=== PATIENT | female | born 1965 | race Caucasian/White ===

== ENCOUNTER 2017-03-03 12:01 | Emergency (ER) | payer OTHER, SELFPAY | END 2017-03-03 14:19 | disposition home or self-care (01) | PROVIDERS: Emergency Provider Emergency Medicine; Visit Provider Emergency Medicine | DX: M54.42 Lumbago with sciatica, left side (principal); M47.9 Spondylosis, unspecified; F17.210 Nicotine dependence, cigarettes, uncomplicated | CPT/HCPCS: 72110; 99282 ==

== ENCOUNTER → 2017-04-07 10:54 | Outpatient (REF) | payer BC, SELFPAY ==
[2017-04-07 17:16] LABS: Amphetamine/Metha Screen,Urine Negative ng/mL (<1000); Barbiturates Screen,Urine Negative ng/mL (<200); Benzodiazepines Screen,Urine Negative ng/mL (200); Cannabinoid Screen,Urine Positive ng/mL (<50); Cocaine Screen,Urine Negative ng/g (<300); Methadone Screen,Urine Negative ng/mL (<300); Opiate Screen,Urine Negative ng/mL (<300); Phencyclidine Screen,Urine Negative ng/mL (<25)
== END ==
LOC: LAB 10:54
PROVIDERS: Visit Provider Nurse Practitioner Family
DX: R63.4 Abnormal weight loss (principal)
CPT/HCPCS: 80305

== ENCOUNTER → 2017-04-09 09:07 | Outpatient (CLI) | payer BC, SELFPAY ==
[2017-04-09 09:28] LABS: Basophils # 0.1 K/mm3 (0-0.2); Basophils % 0.5 % (0.1-2.0); Eosinophils # 0.2 K/mm3 (0.0-0.4); Eosinophils % 1.1 % (0.1-12.0); Hematocrit 45.7 % (37.0-47.0); Hemoglobin 14.9 g/dL (12.2-16.2); Lymphocytes # 5.1 K/mm3 (0.7-4.5); Lymphocytes % 33.5 K/mm3 (10-50); Mean Corpuscular HGB Conc 32.6 g/dL (31.8-35.4); Mean Corpuscular Hemoglobin 31.8 pg (27.0-31.2); Mean Corpuscular Volume 97.3 fl (81-99); Mean Platelet Volume 7.7 fl (7.4-10.4); Monocytes # 0.5 K/mm3 (0.1-1.0); Monocytes % 3.4 % (1.7-9.3); Neutrophils # 9.4 K/mm3 (1.8-7.8); Neutrophils % 61.5 % (37.0-80.0); Platelet Count 364 K/mm3 (142-424); Red Cell Distribution Width 13.2 % (11.5-17.5); White Blood Count 15.2 K/mm3 (4.8-10.8)
[2017-04-09 09:37] LABS: MANUAL DIFFERENTIAL MANUAL DIFFERENTIAL (MANUAL DIFF)
[2017-04-09 10:23] LABS: Alanine Aminotransferase 26 U/L (12-78); Albumin Level 3.9 gm/dL (3.4-5.0); Albumin/Globulin Ratio 1.3 (1.1-1.8); Alkaline Phosphatase 90 U/L (46-116); Anion Gap 15.6 mEq/L (5-15); Aspartate Amino Transferase 12 U/L (15-37); Bilirubin,Total 0.5 mg/dL (0.2-1.0); Blood Urea Nitrogen 8 mg/dL (7-18); Calcium 8.9 mg/dL (8.5-10.1); Carbon Dioxide 26 mmol/L (21.0-32.0); Chloride 96 mmol/L (98-107); Chol/HDL Ratio 5.1 (1-3.5); Cholesterol 264 mg/dL (140-200); Estimated Glomerular Filt Rate 76 ml/min (>60); GFR (African American) 92 ML/MIN (>60); Globulin 3.1 gm/dl (1.3-3.2); HDL Cholesterol 52 mg/dL (29-89); LDL Cholesterol 143 mg/dL (0-130); Potassium 3.6 mmoL/L (3.5-5.1); Sodium 134 mmol/L (136-145); T4 (Thyroxine) 8.9 ug/dl (4.7-13.3); Thyroid Stimulating Hormone 1.95 uIU/ml (0.358-3.740); Triglycerides 345 mg/dL (30-200); VLDL Cholesterol 69 mg/dL (0-40)
[2017-04-09 10:32] LABS: Glucose 573 mg/dL (74-106)
[2017-04-09 12:32] LABS: Eosinophils % 1 % (0-3); Lymphocytes % 38 % (10-50); Monocytes % 4 % (2-9); Neutrophils % 57 % (42-76); Platelet Estimate Normal; Total Cells Counted 100
[2017-04-09 12:40] LABS: RBC Morphology Normal
[2017-04-09 18:49] LABS: Hemoglobin A1C 10.1 % (0.0-7.0)
[2017-04-10 18:28] LABS: Vitamin D 25 Hydroxy 14.4 ng/mL (30.0-100.0)
[2017-04-11 09:10] LABS: Peripheral Smear Review Scanned Result
== END ==
PROVIDERS: PCP Nurse Practitioner Family; Visit Provider Nurse Practitioner Family
DX: E11.9 Type 2 diabetes mellitus without complications (principal); R63.4 Abnormal weight loss
CPT/HCPCS: 36415; 80053; 80061; 82652; 83036; 84436; 84443; 85007; 85025

== ENCOUNTER → 2017-04-09 14:20 | Outpatient (CLI) | payer BC, SELFPAY ==
--- NOTE | 2017-04-09 14:24 | XR_ITS ---
EXAM: XR lumbar spine 2-3V HISTORY: Low back pain ITS.REASON: back pain ORDERING PHYSICIAN: Adeel Boyd PATIENT AGE: 52 years COMPARISON: 03/03/2017 FINDINGS: There is normal alignment. There is minimal lower thoracic lumbar scoliosis convex right. No fracture or dislocation. No lytic or blastic change. There is minimal anterolisthesis of L5 on S1 of 4 mm. The anterolisthesis did not appear to be present on the previous exam. Bilateral pars defect is present at L5. IMPRESSION: 1. Mild grade 1 spondylitic spondylolisthesis of L5 on S1. 2. Otherwise negative lumbar spine
--- NOTE | 2017-04-09 14:24 | XR_ITS ---
EXAM: XR thoracic spine 3V HISTORY: Thoracic pain ITS.REASON: back pain COMPARISON: None FINDINGS: Normal alignment. No fracture or dislocation. No lytic or blastic change. No significant degenerative change. The disc spaces are preserved. There is mild lower thoracic scoliosis convex right. There is mild degenerative disc disease in the mid to upper thoracic spine with minimal anterior osteophytes. There is slight decrease in height anteriorly of T11 and T12 appears chronic similar to an old abdomen CT on 04/01/2013. IMPRESSION: 1. No acute finding. 2. Mild thoracic spondylosis in the upper and lower thoracic spine
--- NOTE | 2017-04-09 14:24 | XR_ITS ---
XR hip LT 2-3V w/pelvis HISTORY: Left hip pain ITS.REASON: hip pain ORDERING PHYSICIAN: Adeel Boyd PATIENT AGE: 52 years COMPARISON: None FINDINGS: No fracture or dislocation is evident. No significant degenerative change. No lytic or blastic change. Unremarkable soft tissues IMPRESSION: Negative left hip
--- NOTE | 2017-04-09 14:24 | XR_ITS ---
XR chest 2V HISTORY: ITS.REASON: loss of 20 lb in one month ORDERING PHYSICIAN: Adeel Boyd PATIENT AGE: 52 years COMPARISON: None available FINDINGS: The cardiomediastinal silhouette and pulmonary vascularity are within normal limits. The lungs are clear without infiltrates, suspicious nodules, or pleural effusions. There is a 15 mm nodular opacity overlying the right upper quadrant. This may be related to a nipple shadow. Surgical clips are present in the right upper quadrant. No acute bony abnormalities. IMPRESSION: 1. Negative chest with no acute finding of the chest. 2. Right upper quadrant opacity possibly related to overlying nipple shadow.
== END ==
PROVIDERS: PCP Nurse Practitioner Family; Visit Provider Nurse Practitioner Family
DX: R63.4 Abnormal weight loss (principal); M25.559 Pain in unspecified hip; M54.9 Dorsalgia, unspecified
CPT/HCPCS: 71046; 72072; 72100; 73502

== ENCOUNTER 2017-04-14 11:09 | Observation (INO) | payer BC, SELFPAY ==
[2017-04-14] VITALS (10 sets, daily range): BP systolic 109–164; BP diastolic 62–98; PULSE 97–117; RESP 16–20; TEMP 36.6–37; O2SAT 98–100; BMI 17.2
--- NOTE | 2017-04-14 11:25 | CT_ITS ---
CT head/brain wo con HISTORY: ITS.REASON: dizziness ORDERING PHYSICIAN: Lilly Hudson MD PATIENT AGE: 52 years COMPARISON: None TECHNIQUE: Axial images obtained without contrast. Brain and bone windows reviewed. FINDINGS: No midline shift, mass effect, intracranial hemorrhage, hydrocephalus, or extra-axial fluid collection is evident. The calvarium has an unremarkable appearance. No mastoid effusion. No sinus air-fluid levels.. IMPRESSION: No acute finding.
--- NOTE | 2017-04-14 11:26 | HMH.EDDIZZ ---
ED Disposition Clinical Impression: Dizziness, Uncontrolled diabetes mellitus, Tobacco use, Metabolic acidosis, Tachycardia Disposition: Home, Self-Care Condition on Discharge: Fair Referrals: Adeel Boyd APRN [Primary Care Provider] - - Critical Care Critical Care Time: No Attestation: On , the high probability of a clinically significant, sudden or life threatening deterioration of the following system(s) required my full and direct attention, intervention and personal management. The time I documented below is in addition to time spent performing reported procedures but includes the following listed in this critical care notation. Medical Decision Making - Medical Records Medical records reviewed: Yes: I reviewed the patient's medical records. Vital Signs: 04/14/17 11:16 04/14/17 11:17 04/14/17 11:34 Temperature 98 F Temperature Source Oral Pulse Rate [Orthostatic Lying Right Ulnar] 109 H Pulse Rate [Orthostatic Sitting Right Ulnar] 115 H Pulse Rate [Orthostatic Standing Right Ulnar] Pulse Rate [Right Brachial] 106 H Respiratory Rate 18 Blood Pressure [Orthostatic Lying Right Arm] 144/93 Blood Pressure [Orthostatic Sitting Right Arm] 164/98 Blood Pressure [Orthostatic Standing Right Arm] Blood Pressure [Right Arm] 144/93 Blood Pressure Mean [Right Arm] 110 Blood Pressure Source [Right Arm] Automatic Cuff Blood Pressure Position [Right Arm] Supine 02 Sat by Pulse Oximetry 100 Oxygen Delivery Method Room Air 04/14/17 11:37 Temperature Temperature Source Pulse Rate [Orthostatic Lying Right Ulnar] Pulse Rate [Orthostatic Sitting Right Ulnar] Pulse Rate [Orthostatic Standing Right Ulnar] 117 H Pulse Rate [Right Brachial] Respiratory Rate Blood Pressure [Orthostatic Lying Right Arm] Blood Pressure [Orthostatic Sitting Right Arm] Blood Pressure [Orthostatic Standing Right Arm] 134/96 Blood Pressure [Right Arm] Blood Pressure Mean [Right Arm] Blood Pressure Source [Right Arm] Blood Pressure Position [Right Arm] 02 Sat by Pulse Oximetry Oxygen Delivery Method - Lab Data Lab results reviewed: Yes: I reviewed the patient's lab results. Lab Results 04/14/17 11:20: Stool Occult Blood Negative 04/14/17 11:26: Specimen Source R brachial, O2 % Room air, ABG pH 7.29 L, ABG pCO2 21.1 L, ABG pO2 99.7, ABG HCO3 9.8 L, ABG Total CO2 10.5 L, ABG O2 Saturation 98, ABG Base Excess -16.9 L, Michael Test N/a, Carboxyhemoglobin 2.7 04/14/17 11:45: TSH 1.70, Free T4 1.18 04/14/17 11:48: WBC 15.9 H, RBC 5.17, Hgb 16.2, Hct 49.8 H, MCV 96.3, MCH 31.3 H, MCHC 32.5, RDW 13.4, Plt Count 385, MPV 7.4, Neut % (Auto) 64.3, Lymph % (Auto) 30.2, [place] % (Auto) 3.8, Eos % (Auto) 1.2, Baso % (Auto) 0.4, Neut # (Auto) 10.2 H, Lymph # (Auto) 4.8 H, [place] # (Auto) 0.6, Eos # (Auto) 0.2, Baso # (Auto) 0.1, Total Counted 100, Neutrophils % (Manual) 64, Lymphocytes % (Manual) 29, Monocytes % (Manual) 6, Eosinophils % (Manual) 1, Platelet Estimate Slight increase, RBC Morphology Normal 04/14/17 11:48: D-Dimer 167 04/14/17 11:48: Sodium 136, Potassium 3.5, Chloride 101, Carbon Dioxide 16 L, Anion Gap 22.5 H, BUN 10, Creatinine 0.92, Estimated Creat Clear 57, Estimated GFR 64, Est GFR ( Amer) 78, Glucose 319 H, Calcium 9.1, Total Bilirubin 0.7, AST 8 L, ALT 25, Alkaline Phosphatase 96, Total Creatine Kinase 20 L, CK-MB (CK-2) < 0.5, CK-MB (CK-2) Rel Index 2.5, Troponin I < 0.02, Total Protein 7.4, Albumin 3.8, Globulin 3.6 H, Albumin/Globulin Ratio 1.1 04/14/17 11:48: Magnesium 1.7 04/14/17 12:45: Lactic Acid 1.1 Result diagrams: 04/14/17 11:48 04/14/17 11:48 Orders (Tests/Meds): ED MEDICATIONS Discontinued Medications Generic Name Dose Route Start Last Admin Trade Name Freq PRN Reason Stop Dose Admin Sodium Chloride 1,000 mls @ 999 mls/hr 04/14/17 11:45 04/14/17 11:55 Sod Chloride 0.9% 1000ml Bag IV 04/14/17 12:45 999 mls/hr .Q1H1M ESTEBAN Administration Meclizine H
--- NOTE | 2017-04-14 11:29 | ED_ITS ---
ED Disposition Clinical Impression: Dizziness, Uncontrolled diabetes mellitus, Tobacco use, Metabolic acidosis, Tachycardia Disposition: Home, Self-Care Condition on Discharge: Fair Referrals: Adeel Boyd APRN [Primary Care Provider] - - Critical Care Critical Care Time: No Attestation: On , the high probability of a clinically significant, sudden or life threatening deterioration of the following system(s) required my full and direct attention, intervention and personal management. The time I documented below is in addition to time spent performing reported procedures but includes the following listed in this critical care notation. Medical Decision Making - Medical Records Medical records reviewed: Yes: I reviewed the patient's medical records. Vital Signs: 04/14/17 11:16 04/14/17 11:17 04/14/17 11:34 Temperature 98 F Temperature Source Oral Pulse Rate [Orthostatic Lying Right Ulnar] 109 H Pulse Rate [Orthostatic Sitting Right Ulnar] 115 H Pulse Rate [Orthostatic Standing Right Ulnar] Pulse Rate [Right Brachial] 106 H Respiratory Rate 18 Blood Pressure [Orthostatic Lying Right Arm] 144/93 Blood Pressure [Orthostatic Sitting Right Arm] 164/98 Blood Pressure [Orthostatic Standing Right Arm] Blood Pressure [Right Arm] 144/93 Blood Pressure Mean [Right Arm] 110 Blood Pressure Source [Right Arm] Automatic Cuff Blood Pressure Position [Right Arm] Supine 02 Sat by Pulse Oximetry 100 Oxygen Delivery Method Room Air 04/14/17 11:37 Temperature Temperature Source Pulse Rate [Orthostatic Lying Right Ulnar] Pulse Rate [Orthostatic Sitting Right Ulnar] Pulse Rate [Orthostatic Standing Right Ulnar] 117 H Pulse Rate [Right Brachial] Respiratory Rate Blood Pressure [Orthostatic Lying Right Arm] Blood Pressure [Orthostatic Sitting Right Arm] Blood Pressure [Orthostatic Standing Right Arm] 134/96 Blood Pressure [Right Arm] Blood Pressure Mean [Right Arm] Blood Pressure Source [Right Arm] Blood Pressure Position [Right Arm] 02 Sat by Pulse Oximetry Oxygen Delivery Method - Lab Data Lab results reviewed: Yes: I reviewed the patient's lab results. Lab Results 04/14/17 11:20: Stool Occult Blood Negative 04/14/17 11:26: Specimen Source R brachial, O2 % Room air, ABG pH 7.29 L, ABG pCO2 21.1 L, ABG pO2 99.7, ABG HCO3 9.8 L, ABG Total CO2 10.5 L, ABG O2 Saturation 98, ABG Base Excess -16.9 L, Michael Test N/a, Carboxyhemoglobin 2.7 04/14/17 11:45: TSH 1.70, Free T4 1.18 04/14/17 11:48: WBC 15.9 H, RBC 5.17, Hgb 16.2, Hct 49.8 H, MCV 96.3, MCH 31.3 H , MCHC 32.5, RDW 13.4, Plt Count 385, MPV 7.4, Neut % (Auto) 64.3, Lymph % (Auto ) 30.2, [place] % (Auto) 3.8, Eos % (Auto) 1.2, Baso % (Auto) 0.4, Neut # (Auto) 10.2 H, Lymph # (Auto) 4.8 H, [place] # (Auto) 0.6, Eos # (Auto) 0.2, Baso # (Auto ) 0.1, Total Counted 100, Neutrophils % (Manual) 64, Lymphocytes % (Manual) 29, Monocytes % (Manual) 6, Eosinophils % (Manual) 1, Platelet Estimate Slight increase, RBC Morphology Normal 04/14/17 11:48: D-Dimer 167 04/14/17 11:48: Sodium 136, Potassium 3.5, Chloride 101, Carbon Dioxide 16 L, Anion Gap 22.5 H, BUN 10, Creatinine 0.92, Estimated Creat Clear 57, Estimated GFR 64, Est GFR ( Amer) 78, Glucose 319 H, Calcium 9.1, Total Bilirubin 0.7, AST 8 L, ALT 25, Alkaline Phosphatase 96, Total Crea
--- NOTE | 2017-04-14 11:51 | XR_ITS ---
XR chest 2V HISTORY: ITS.REASON: dizziness , right upper quadrant nodule ORDERING PHYSICIAN: Lilly Hudson MD PATIENT AGE: 52 years COMPARISON: None available FINDINGS: The cardiomediastinal silhouette and pulmonary vascularity are within normal limits. The lungs are clear without infiltrates, suspicious nodules, or pleural effusions. Previously noted right upper lobe opacity once again associated with the right breast consistent with a nipple shadow No acute bony abnormalities. IMPRESSION: No change with no acute finding.
[2017-04-14 11:57] LABS: Basophils # 0.1 K/mm3 (0-0.2); Basophils % 0.4 % (0.1-2.0); Eosinophils # 0.2 K/mm3 (0.0-0.4); Eosinophils % 1.2 % (0.1-12.0); Hematocrit 49.8 % (37.0-47.0); Hemoglobin 16.2 g/dL (12.2-16.2); Lymphocytes # 4.8 K/mm3 (0.7-4.5); Lymphocytes % 30.2 K/mm3 (10-50); Mean Corpuscular HGB Conc 32.5 g/dL (31.8-35.4); Mean Corpuscular Hemoglobin 31.3 pg (27.0-31.2); Mean Corpuscular Volume 96.3 fl (81-99); Mean Platelet Volume 7.4 fl (7.4-10.4); Monocytes # 0.6 K/mm3 (0.1-1.0); Monocytes % 3.8 % (1.7-9.3); Neutrophils # 10.2 K/mm3 (1.8-7.8); Neutrophils % 64.3 % (37.0-80.0); Platelet Count 385 K/mm3 (142-424); Red Blood Count 5.17 M/mm3 (4.20-5.40); Red Cell Distribution Width 13.4 % (11.5-17.5); White Blood Count 15.9 K/mm3 (4.8-10.8)
[2017-04-14 11:57] LABS: Occult Blood,Stool Negative (Negative)
[2017-04-14 12:01] LABS: MANUAL DIFFERENTIAL MANUAL DIFFERENTIAL (MANUAL DIFF); Magnesium 1.7 mg/dL (1.4-2.2)
[2017-04-14 12:19] LABS: ABG Base Excess -16.9 mmol/L (-2.4-2.3); ABG HCO3 9.8 mmhg (22.0-26.0); ABG Oxygen Saturation 98 % (90-100); ABG PCO2 21.1 mmhg (35.0-45.0); ABG PH 7.29 mmol/L (7.35-7.45); ABG PO2 99.7 mmhg (80-100); ABG TCO2 10.5 mmhg (23-27)
[2017-04-14 12:20] LABS: Oxygen ROOM AIR %; Source R BRACHIAL
[2017-04-14 12:21] LABS: Carboxyhemoglobin 2.7 (0.0-5.0)
[2017-04-14 12:26] LABS: D-Dimer 167 (0-400)
[2017-04-14 12:35] LABS: CKMB Relative Index 2.5 U/L (0-4.0); Creatine Kinase 20 U/L (26-192); Creatine Kinase MB < 0.5 mg/ml (0.0-3.6)
[2017-04-14 12:36] LABS: Alanine Aminotransferase 25 U/L (12-78); Anion Gap 22.5 mEq/L (5-15); Aspartate Amino Transferase 8 U/L (15-37); Bilirubin,Total 0.7 mg/dL (0.2-1.0); Blood Urea Nitrogen 10 mg/dL (7-18); Calcium 9.1 mg/dL (8.5-10.1); Carbon Dioxide 16 mmol/L (21.0-32.0); Chloride 101 mmol/L (98-107); Creatinine Clearance Estimated 57 mL/min (0-300); Creatinine,Serum 0.92 mg/dL (0.55-1.02); Estimated Glomerular Filt Rate 64 ml/min (>60); GFR (African American) 78 ML/MIN (>60); Glucose 319 mg/dL (74-106); Potassium 3.5 mmoL/L (3.5-5.1); Sodium 136 mmol/L (136-145); Total Protein,Serum 7.4 gm/dL (6.4-8.2); Troponin I < 0.02 ng/ml (0.00-0.06)
[2017-04-14 12:37] LABS: Albumin Level 3.8 gm/dL (3.4-5.0); Albumin/Globulin Ratio 1.1 (1.1-1.8); Alkaline Phosphatase 96 U/L (46-116); Globulin 3.6 gm/dl (1.3-3.2)
[2017-04-14 12:38] LABS: Free T4 (Free Thyroxine) 1.18 ng/dl (0.76-1.46)
[2017-04-14 12:51] LABS: Eosinophils % 1 % (0-3); Lymphocytes % 29 % (10-50); Monocytes % 6 % (2-9); Neutrophils % 64 % (42-76); Platelet Estimate Slight Increase; RBC Morphology Normal; Total Cells Counted 100
[2017-04-14 13:11] LABS: Lactic Acid 1.1 mmol/L (0.4-2.0)
[2017-04-14 18:01] LABS: POC Glucose,Bedside 200 mg/dL
--- NOTE | 2017-04-14 18:17 | PC.NURSE ---
PT LAYING IN BED; DINNER TRAY ON BEDSIDE TABLE; PT NOT EATING AND RN ASKS PT IF SHE WOULD LIKE HER TO REMOVE IT OR IF SHE WOULD LIKE TO KEEP IT IN CASE SHE WANTS IT; PT STATES TO LEAVE THE TRAY, SHE'LL PICK AT IT ; NO OTHER NEEDS OR CONCERNS AT THIS TIME; CALL LIGHT WITHIN REACH; BEDSIDE TABLE WITHIN REACH; SAFETY MEASURES IN PLACE
--- NOTE | 2017-04-14 19:10 | PC.NURSE ---
REPORT GIVEN TO Shadi MASCORRO RN
[2017-04-14 21:39] LABS: POC Glucose,Bedside 293 mg/dL
[2017-04-15 04:05] VITALS: BP 107/64; PULSE 91; RESP 18; TEMP 36.7; O2SAT 99
--- NOTE | 2017-04-15 05:34 | PC.NURSE ---
pt remains stable at this time. denies pain, no needs voiced
[2017-04-15 06:55] LABS: POC Glucose,Bedside 199 mg/dL
[2017-04-15 07:04] LABS: POC Glucose,Bedside 190 mg/dL
[2017-04-15 07:10] LABS: Alanine Aminotransferase 20 U/L (12-78); Albumin Level 2.7 gm/dL (3.4-5.0); Alkaline Phosphatase 65 U/L (46-116); Anion Gap 15.8 mEq/L (5-15); Aspartate Amino Transferase 10 U/L (15-37); Bilirubin,Total 0.8 mg/dL (0.2-1.0); Blood Urea Nitrogen 5 mg/dL (7-18); Calcium 8.6 mg/dL (8.5-10.1); Carbon Dioxide 19 mmol/L (21.0-32.0); Chloride 107 mmol/L (98-107); Creatinine Clearance Estimated 95 mL/min (0-300); Creatinine,Serum 0.55 mg/dL (0.55-1.02); Estimated Glomerular Filt Rate 117 ml/min (>60); GFR (African American) 141 ML/MIN (>60); Globulin 2.6 gm/dl (1.3-3.2); Glucose 190 mg/dL (74-106); Sodium 139 mmol/L (136-145); Total Protein,Serum 5.3 gm/dL (6.4-8.2)
[2017-04-15 07:12] LABS: Potassium 2.8 mmoL/L (3.5-5.1)
--- NOTE | 2017-04-15 07:14 | PC.NURSE ---
potassium of 2.8 recieved, Dr. Lopes paged at this time
--- NOTE | 2017-04-15 07:50 | P.CONPHA_ITS ---
[facility] Pharmacy VTE Monitoring - Patient Demographics Admission date: 04/14/17 Report Date: 04/15/17 Time: 07:50 Allergies/Adverse Reactions: Patient Allergies No Known Allergies Allergy (Verified 04/09/17 13:08) Height: 1.7 m Weight: 49.895 kg Patient Problems: Current Active Problems Dizziness (Acute) Uncontrolled diabetes mellitus (Acute) Tobacco use (Acute) Metabolic acidosis (Acute) Tachycardia (Acute) - VTE Risk Labs: VTE Related Lab Results Hgb 16.2 g/dL (12.2-16.2) 04/14/17 11:48 Hct 49.8 % (37.0-47.0) H 04/14/17 11:48 Plt Count 385 K/mm3 (142-424) 04/14/17 11:48 BUN 5 mg/dL (7-18) L D 04/15/17 06:50 Creatinine 0.55 mg/dL (0.55-1.02) D 04/15/17 06:50 Estimated Creat Clear 95 mL/min (0-300) 04/15/17 06:50 Was VTE Risk Assessment Performed: Yes VTE Score: 2 VTE Risk Level: Very Low Risk Clinical Trial Participant: No - Prophylaxis VTE Prophylaxis Ordered?: Yes Types of VTE Prophylaxis: TEDS Knee High
[2017-04-15 08:00] VITALS: BP 119/72; PULSE 94; RESP 17; TEMP 36.8; O2SAT 97
[2017-04-15 09:40] LABS: Acetone, Serum (Rapid) Small (None Detect)
--- NOTE | 2017-04-15 10:57 | PC.NURSE ---
Potassium 20meq running, applied heart monitor for duration on potassium. Pt has no complaints at this time. Instructed on glucatol dose and side effects of hypoglycemia. Pt verbalized understanding. Will continue to monitor
[2017-04-15 11:40] VITALS: BP 125/75; PULSE 94; RESP 17; TEMP 36.9; O2SAT 100
[2017-04-15 12:05] LABS: POC Glucose,Bedside 248 mg/dL
[2017-04-15 12:43] LABS: Alanine Aminotransferase 25 U/L (12-78); Albumin/Globulin Ratio 1.2 (1.1-1.8); Alkaline Phosphatase 70 U/L (46-116); Anion Gap 13.8 mEq/L (5-15); Aspartate Amino Transferase 17 U/L (15-37); Bilirubin,Total 0.6 mg/dL (0.2-1.0); Blood Urea Nitrogen 5 mg/dL (7-18); Calcium 8.4 mg/dL (8.5-10.1); Carbon Dioxide 22 mmol/L (21.0-32.0); Chloride 106 mmol/L (98-107); Creatinine Clearance Estimated 70 mL/min (0-300); Creatinine,Serum 0.75 mg/dL (0.55-1.02); Estimated Glomerular Filt Rate 81 ml/min (>60); GFR (African American) 99 ML/MIN (>60); Globulin 2.6 gm/dl (1.3-3.2); Glucose 247 mg/dL (74-106); Sodium 139 mmol/L (136-145); Total Protein,Serum 5.6 gm/dL (6.4-8.2)
[2017-04-15 12:45] LABS: Potassium 2.8 mmoL/L (3.5-5.1)
--- NOTE | 2017-04-15 12:45 | PC.NURSE ---
Gisel from the lab called at this time to report critical potassium of 2.8, will notify pts nurse.
--- NOTE | 2017-04-15 12:46 | PC.NURSE ---
Georgiana Badillo RN notified at this time of critical potassium of 2.8
--- NOTE | 2017-04-15 13:21 | HMH.HPDC ---
General - General Admission date: 04/14/17 Discharge date: 04/15/17 *Admission Date: 04/14/17 *Chief complaint: dizzy *History of present illness: 52 years old white female smoker was recently diagnosed with diabetes and started on metformin from office. She presented to the ED with a complaint of dizziness and loss of balance of 1 month's duration that is worse over the last 2 days. It is worse when she is getting up she almost lost her balance and fell but there is no trauma. He denies having chest pain palpitations shortness of breath nausea or vomiting. Pt states room feels like it is spinning. [facility] History I have reviewed the patient's past medical history: Yes Medical History: Reports:: Diabetes Mellitus Type 2 Denies:: Cancer, Diabetes Mellitus Type 1, MRSA Laterality Cases: Left: Arthroscopy Knee Other Surgeries: Yes: Tubal Ligation, Other (gall bladder) Amputation: No Fractures: No - *Social History Educational Level: Completed High School Smoking Status: Current every day smoker Tobacco Type: cigarettes # Packs/Day (cigarettes): 2 Alcohol Intake: never Substance Use Type: denies use Occupational Status: unemployed Housing: house Household Members: spouse, children - Psychiatric History Expresses thoughts of harming self/others: None Suicide Plan Description: No Plan *Family Hx:: Adopted Review of Systems - Review of Systems Review of systems:: pertinent systems reviewed and negative unless documented below - Constitutional Reports anorexia, Reports fatigue - Eyes Denies blurry vision, Denies floaters - ENT Reports poor balance, Reports dizziness, Denies lip swelling - *Cardiovascular Denies chest pain at rest - *Respiratory Denies chest congestion - *Gastrointestinal Denies difficulty swallowing - *Genitourinary Denies abnormal vaginal bleeding - *Musculoskeletal Reports body aches - Integumentary/Breasts Denies rash - *Neurologic Reports unsteadiness, Reports dizziness, Reports weakness, Denies abnormal walking - Psychiatric Reports difficulty concentrating, Denies lack of enjoyment - Endocrine Reports cold intolerance - Hematologic/Lymphatic Denies easy bleeding - Allergic/Immunologic Denies GI upset with certain foods Exam Vital signs and Labs for Last 24 Hours: Temp Pulse Resp BP Pulse Ox 98.5 F 94 H 17 125/75 100 04/15/17 11:40 04/15/17 11:40 04/15/17 11:40 04/15/17 11:40 04/15/17 11:40 Laboratory Results - last 24 hr 04/14/17 17:50: POC Glucose 200 04/14/17 23:18: POC Glucose 199 04/15/17 06:50: Sodium 139, Potassium 2.8 L*, Chloride 107, Carbon Dioxide 19 L, Anion Gap 15.8 H, BUN 5 L D, Creatinine 0.55 D, Estimated Creat Clear 95, Estimated GFR 117, Est GFR ( Amer) 141 D, Glucose 190 H D, Calcium 8.6, Total Bilirubin 0.8, AST 10 L, ALT 20, Alkaline Phosphatase 65, Total Protein 5.3 L D, Albumin 2.7 L D, Globulin 2.6, Albumin/Globulin Ratio 1.0 L 04/15/17 06:50: Acetone Level Small 04/15/17 06:56: POC Glucose 190 04/15/17 11:44: POC Glucose 248 04/15/17 12:19: Sodium 139, Potassium 2.8 L*, Chloride 106, Carbon Dioxide 22, Anion Gap 13.8, BUN 5 L, Creatinine 0.75 D, Estimated Creat Clear 70, Estimated GFR 81, Est GFR ( Amer) 99 D, Glucose 247 H D, Calcium 8.4 L, Total Bilirubin 0.6, AST 17 D, ALT 25, Alkaline Phosphatase 70, Total Protein 5.6 L, Albumin 3.0 L D, Globulin 2.6, Albumin/Globulin Ratio 1.2 I & O for Last 24 hours: Intake & Output 04/13/17 04/14/17 04/15/17 04/16/17 11:59 11:59 11:59 11:59 Intake Total 1525 / 1525 Output Total 500 / 500 Balance 1025 / 1025 Weight 110 lb - Constitutional no acute distress - *Routine HEENT Exam Head: Present: normocephalic Eye: Present: PERRL ENT: Present: mucous membranes moist - *Routine Neck Exam Present: supple, full ROM - *Routine Respiratory Exam Present: CTA bilaterally - *Routine Cardiovascular Exam Present: RRR - *Routine Abdomi
--- NOTE | 2017-04-15 13:25 | P.SWB_ITS ---
General - General Admission date: 04/14/17 Discharge date: 04/15/17 *Admission Date: 04/14/17 *Chief complaint: dizzy *History of present illness: 52 years old white female smoker was recently diagnosed with diabetes and started on metformin from office. She presented to the ED with a complaint of dizziness and loss of balance of 1 month's duration that is worse over the last 2 days. It is worse when she is getting up she almost lost her balance and fell but there is no trauma. He denies having chest pain palpitations shortness of breath nausea or vomiting. Pt states room feels like it is spinning. [facility] History I have reviewed the patient's past medical history: Yes Medical History: Reports:: Diabetes Mellitus Type 2 Denies:: Cancer, Diabetes Mellitus Type 1, MRSA Laterality Cases: Left: Arthroscopy Knee Other Surgeries: Yes: Tubal Ligation, Other (gall bladder) Amputation: No Fractures: No - *Social History Educational Level: Completed High School Smoking Status: Current every day smoker Tobacco Type: cigarettes # Packs/Day (cigarettes): 2 Alcohol Intake: never Substance Use Type: denies use Occupational Status: unemployed Housing: house Household Members: spouse, children - Psychiatric History Expresses thoughts of harming self/others: None Suicide Plan Description: No Plan *Family Hx:: Adopted Review of Systems - Review of Systems Review of systems:: pertinent systems reviewed and negative unless documented below - Constitutional Reports anorexia, Reports fatigue - Eyes Denies blurry vision, Denies floaters - ENT Reports poor balance, Reports dizziness, Denies lip swelling - *Cardiovascular Denies chest pain at rest - *Respiratory Denies chest congestion - *Gastrointestinal Denies difficulty swallowing - *Genitourinary Denies abnormal vaginal bleeding - *Musculoskeletal Reports body aches - Integumentary/Breasts Denies rash - *Neurologic Reports unsteadiness, Reports dizziness, Reports weakness, Denies abnormal walking - Psychiatric Reports difficulty concentrating, Denies lack of enjoyment - Endocrine Reports cold intolerance - Hematologic/Lymphatic Denies easy bleeding - Allergic/Immunologic Denies GI upset with certain foods Exam Vital signs and Labs for Last 24 Hours: Temp Pulse Resp BP Pulse Ox 98.5 F 94 H 17 125/75 100 04/15/17 11:40 04/15/17 11:40 04/15/17 11:40 04/15/17 11:40 04/15/17 11:40 Laboratory Results - last 24 hr 04/14/17 17:50: POC Glucose 200 04/14/17 23:18: POC Glucose 199 04/15/17 06:50: Sodium 139, Potassium 2.8 L*, Chloride 107, Carbon Dioxide 19 L , Anion Gap 15.8 H, BUN 5 L D, Creatinine 0.55 D, Estimated Creat Clear 95, Estimated GFR 117, Est GFR ( Amer) 141 D, Glucose 190 H D, Calcium 8.6, Total Bilirubin 0.8, AST 10 L, ALT 20, Alkaline Phosphatase 65, Total Protein 5.3 L D, Albumin 2.7 L D, Globulin 2.6, Albumin/Globulin Ratio 1.0 L 04/15/17 06:50: Acetone Level Small 04/15/17 06:56: POC Glucose 190 04/15/17 11:44: POC Glucose 248 04/15/17 12:19: Sodium 139, Potassium 2.8 L*, Chloride 106, Carbon Dioxide 22, Anion Gap 13.8, BUN 5 L, Creatinine 0.75 D, Estimated Creat Clear 70, Estimated GFR 81, Est GFR ( Amer) 99 D, Glucose 247 H D, Calcium 8.4 L, Total Bilirubin 0.6, AST 17 D, ALT 25, Alkaline Phosphatase 70, Total Protein 5.6 L, Albumin 3.0 L D, Globulin 2.6, Albumin/Globulin Ratio 1.2 I & O for Last 24 hours: I
--- NOTE | 2017-04-15 13:32 | PC.NURSE ---
[address] Lopes reported critical lab Potassium 2.8; increased from am value. Dr. Lopes planning on discharging patient this afternoon, evening.
--- NOTE | 2017-04-15 14:23 | PC.NURSE ---
New order for discharge; gave discharge instructions to patient; patient to [facility] for glucatrol 2.5mg QD to start tomorrow , follow up in 1 week with provider- Dr. Lopes. Instructed on Glucatrol 2.5 on side effects and symptoms of hypoglycemia. Pt verbalized understanding of instructions. Pt to call and he will pick her up shortly. Took out IV to left AC, site without any reddness or swelling; covered with 2x2 and coban wrap. Pt tolerated without complaints
[2017-04-15 16:30] VITALS: BMI 17.2
== END 2017-04-15 15:39 | disposition home or self-care (01) ==
LOC: ER 14:06 → OB 15:14
PROVIDERS: Admitting Provider Emergency Medicine; Emergency Provider Emergency Medicine; Family Provider Family Medicine; PCP Nurse Practitioner Family; Visit Provider Emergency Medicine
DX: E11.9 Type 2 diabetes mellitus without complications (principal)
CPT/HCPCS: 36415; 70450; 71046; 80053; 82009; 82272; 82375; 82550; 82553; 82803; 82962; 83605; 83735; 84439; 84443; 84484; 85007; 85025; 85378; 93005; 93041; 96365; 96366; 99284; G0328; G0378

== ENCOUNTER → 2017-04-21 15:47 | Outpatient (REF) | payer BC, SELFPAY ==
[2017-04-21 20:35] LABS: Alanine Aminotransferase 26 U/L (12-78); Albumin Level 3.2 gm/dL (3.4-5.0); Albumin/Globulin Ratio 1.2 (1.1-1.8); Alkaline Phosphatase 63 U/L (46-116); Bilirubin,Total 0.2 mg/dL (0.2-1.0); Blood Urea Nitrogen 12 mg/dL (7-18); Calcium 8.7 mg/dL (8.5-10.1); Carbon Dioxide 22 mmol/L (21.0-32.0); Chloride 107 mmol/L (98-107); Creatinine,Serum 0.49 mg/dL (0.55-1.02); Estimated Glomerular Filt Rate 133 ml/min (>60); GFR (African American) 161 ML/MIN (>60); Globulin 2.6 gm/dl (1.3-3.2); Glucose 289 mg/dL (74-106); Sodium 143 mmol/L (136-145); Total Protein,Serum 5.8 gm/dL (6.4-8.2)
[2017-04-21 20:38] LABS: Anion Gap 16.9 mEq/L (5-15)
[2017-04-21 20:40] LABS: Aspartate Amino Transferase 15 U/L (15-37); Potassium 2.9 mmoL/L (3.5-5.1)
[2017-04-23 12:35] LABS: Microalbumin, Urine 8.1 ug/mL (Not Estab.)
== END ==
LOC: LAB 15:47
PROVIDERS: Visit Provider Nurse Practitioner Family
DX: E11.65 Type 2 diabetes mellitus with hyperglycemia (principal)
CPT/HCPCS: 80053; 82043

== ENCOUNTER → 2017-05-01 10:57 | Outpatient (CLI) | payer BC, SELFPAY ==
[2017-05-01 12:06] LABS: Alanine Aminotransferase 39 U/L (12-78); Albumin Level 3.8 gm/dL (3.4-5.0); Albumin/Globulin Ratio 1.4 (1.1-1.8); Alkaline Phosphatase 123 U/L (46-116); Anion Gap 13.7 mEq/L (5-15); Aspartate Amino Transferase 8 U/L (15-37); Bilirubin,Total 0.6 mg/dL (0.2-1.0); Blood Urea Nitrogen 8 mg/dL (7-18); Carbon Dioxide 25 mmol/L (21.0-32.0); Chloride 104 mmol/L (98-107); Creatinine,Serum 0.59 mg/dL (0.55-1.02); Estimated Glomerular Filt Rate 107 ml/min (>60); GFR (African American) 130 ML/MIN (>60); Globulin 2.8 gm/dl (1.3-3.2); Glucose 340 mg/dL (74-106); Potassium 3.7 mmoL/L (3.5-5.1); Sodium 139 mmol/L (136-145); Total Protein,Serum 6.6 gm/dL (6.4-8.2)
== END ==
PROVIDERS: PCP Nurse Practitioner Family; Visit Provider Nurse Practitioner Family
DX: E87.6 Hypokalemia (principal)
CPT/HCPCS: 36415; 80053

== ENCOUNTER → 2017-08-12 10:33 | Outpatient (REF) | payer BC, SELFPAY ==
[2017-08-12 13:41] LABS: Basophils % 0.5 % (0.1-2.0); Eosinophils # 0.2 K/mm3 (0.0-0.4); Eosinophils % 2.6 % (0.1-12.0); Hemoglobin 15.6 g/dL (12.2-16.2); Lymphocytes # 3.1 K/mm3 (0.7-4.5); Lymphocytes % 32.4 K/mm3 (10-50); Mean Corpuscular HGB Conc 31.8 g/dL (31.8-35.4); Mean Corpuscular Hemoglobin 30.8 pg (27.0-31.2); Mean Corpuscular Volume 96.9 fl (81-99); Mean Platelet Volume 7.7 fl (7.4-10.4); Monocytes # 0.3 K/mm3 (0.1-1.0); Monocytes % 3.5 % (1.7-9.3); Neutrophils # 5.8 K/mm3 (1.8-7.8); Neutrophils % 61.1 % (37.0-80.0); Platelet Count 297 K/mm3 (142-424); Red Blood Count 5.06 M/mm3 (4.20-5.40); Red Cell Distribution Width 12.8 % (11.5-17.5); White Blood Count 9.4 K/mm3 (4.8-10.8)
[2017-08-12 14:17] LABS: Alanine Aminotransferase 80 U/L (12-78); Albumin/Globulin Ratio 1.4 (1.1-1.8); Alkaline Phosphatase 128 U/L (46-116); Anion Gap 14.1 mEq/L (5-15); Aspartate Amino Transferase 44 U/L (15-37); Bilirubin,Total 0.5 mg/dL (0.2-1.0); Blood Urea Nitrogen 9 mg/dL (7-18); Calcium 9.2 mg/dL (8.5-10.1); Carbon Dioxide 27 mmol/L (21.0-32.0); Chloride 104 mmol/L (98-107); Cholesterol 218 mg/dL (140-200); Creatinine,Serum 0.55 mg/dL (0.55-1.02); Estimated Glomerular Filt Rate 117 ml/min (>60); GFR (African American) 141 ML/MIN (>60); Globulin 2.9 gm/dl (1.3-3.2); Glucose 139 mg/dL (74-106); HDL Cholesterol 55 mg/dL (29-89); Hemoglobin A1C 6.5 % (0.0-7.0); LDL Cholesterol 142 mg/dL (0-130); Potassium 4.1 mmoL/L (3.5-5.1); Sodium 141 mmol/L (136-145); T4 (Thyroxine) 8.1 ug/dl (4.7-13.3); Thyroid Stimulating Hormone 1.44 uIU/ml (0.358-3.740); Total Protein,Serum 6.9 gm/dL (6.4-8.2); Triglycerides 107 mg/dL (30-200); VLDL Cholesterol 21 mg/dL (0-40)
[2017-08-13 06:11] LABS: Microalbumin, Urine 7.6 ug/mL (Not Estab.)
== END ==
LOC: LAB 10:33
PROVIDERS: Visit Provider Nurse Practitioner Family
DX: E11.9 Type 2 diabetes mellitus without complications (principal); R53.83 Other fatigue
CPT/HCPCS: 80053; 80061; 82043; 82652; 83036; 84436; 84443; 85025

== ENCOUNTER → 2017-11-04 10:19 | Outpatient (REF) | payer BC, SELFPAY ==
[2017-11-04 13:58] LABS: Amphetamine/Metha Screen,Urine Negative ng/mL (<1000); Barbiturates Screen,Urine Negative ng/mL (<200); Benzodiazepines Screen,Urine Negative ng/mL (<200); Cannabinoid Screen,Urine Positive ng/mL (<50); Cocaine Screen,Urine Negative ng/mL (<300); Methadone Screen,Urine Negative ng/mL (<300); Opiate Screen,Urine Negative ng/mL (<300); Phencyclidine Screen,Urine Negative ng/mL (<25)
== END ==
LOC: LAB 10:19
PROVIDERS: Visit Provider Nurse Practitioner Family
DX: Z79.899 Other long term (current) drug therapy (principal)
CPT/HCPCS: 80305

== ENCOUNTER → 2018-07-16 07:59 | Outpatient (CLI) | payer BC, SELFPAY ==
[2018-07-16 08:22] LABS: Basophils # 0.1 K/mm3 (0-0.2); Basophils % 0.5 % (0.1-2.0); Eosinophils # 0.6 K/mm3 (0.0-0.4); Eosinophils % 5.2 % (0.1-12.0); Hemoglobin 15.4 g/dL (12.2-16.2); Lymphocytes # 3.8 K/mm3 (0.7-4.5); Lymphocytes % 33.8 % (10-50); Mean Corpuscular HGB Conc 33.5 g/dL (31.8-35.4); Mean Corpuscular Hemoglobin 31.1 pg (27.0-31.2); Mean Corpuscular Volume 92.6 fl (81-99); Mean Platelet Volume 6.7 fl (7.4-10.4); Monocytes # 0.6 K/mm3 (0.1-1.0); Monocytes % 4.9 % (1.7-9.3); Neutrophils # 6.2 K/mm3 (1.8-7.8); Neutrophils % 55.6 % (37.0-80.0); Platelet Count 300 K/mm3 (142-424); Red Blood Count 4.96 M/mm3 (4.20-5.40); Red Cell Distribution Width 12.8 % (11.5-17.5); White Blood Count 11.2 K/mm3 (4.8-10.8)
[2018-07-16 08:40] LABS: Hemoglobin A1C 8.4 % (0.0-7.0)
[2018-07-16 10:03] LABS: Alanine Aminotransferase 17 U/L (12-78); Albumin Level 3.8 gm/dL (3.4-5.0); Albumin/Globulin Ratio 1.2 (1.1-1.8); Alkaline Phosphatase 104 U/L (46-116); Anion Gap 14.2 mEq/L (5-15); Aspartate Amino Transferase 4 U/L (15-37); Bilirubin,Total 0.3 mg/dL (0.2-1.0); Blood Urea Nitrogen 14 mg/dL (7-18); Calcium 8.9 mg/dL (8.5-10.1); Carbon Dioxide 23 mmol/L (21.0-32.0); Chloride 103 mmol/L (98-107); Chol/HDL Ratio 5.7 (1-3.5); Cholesterol 243 mg/dL (140-200); Creatinine,Serum 0.73 mg/dL (0.55-1.02); Estimated Glomerular Filt Rate 84 ml/min (>60); GFR (African American) 101 ML/MIN (>60); Globulin 3.3 gm/dl (1.3-3.2); Glucose 251 mg/dL (74-106); HDL Cholesterol 43 mg/dL (29-89); LDL Cholesterol 164 mg/dL (0-130); Potassium 4.2 mmoL/L (3.5-5.1); Sodium 136 mmol/L (136-145); T4 (Thyroxine) 6.7 ug/dl (4.7-13.3); Thyroid Stimulating Hormone 1.65 uIU/ml (0.358-3.740); Total Protein,Serum 7.1 gm/dL (6.4-8.2); Triglycerides 180 mg/dL (30-200); VLDL Cholesterol 36 mg/dL (0-40)
[2018-07-17 09:19] LABS: Creatinine, Urine 123.5 mg/dL (Not Estab.); Microalbumin, Urine 5.7 ug/mL (Not Estab.)
[2018-07-23 11:44] LABS: 1,25-Dihydroxy, Vitamin D-2 <10 pg/mL (.)
[2018-07-23 11:46] LABS: 1,25 Dihydroxy Vitamin D 30 pg/mL (.); 1,25-Dihydroxy, Vitamin D-3 27 pg/mL (.)
== END ==
PROVIDERS: Visit Provider Nurse Practitioner Family
DX: G57.92 Unspecified mononeuropathy of left lower limb (principal); E11.9 Type 2 diabetes mellitus without complications; Z79.84 Long term (current) use of oral hypoglycemic drugs
CPT/HCPCS: 36415; 80053; 80061; 82043; 82570; 82652; 83036; 84436; 84443; 85025

== ENCOUNTER → 2018-10-13 17:07 | Outpatient (CLI) | payer BC, SELFPAY ==
[2018-10-13 18:31] LABS: Amphetamine/Metha Screen,Urine Negative ng/mL (<1000); Barbiturates Screen,Urine Negative ng/mL (<200); Benzodiazepines Screen,Urine Negative ng/mL (<200); Cannabinoid Screen,Urine Positive ng/mL (<50); Cocaine Screen,Urine Negative ng/mL (<300); Methadone Screen,Urine Negative ng/mL (<300); Opiate Screen,Urine Negative ng/mL (<300); Phencyclidine Screen,Urine Negative ng/mL (<25)
== END ==
PROVIDERS: Visit Provider Nurse Practitioner Family
DX: Z79.899 Other long term (current) drug therapy (principal)
CPT/HCPCS: 80305

== ENCOUNTER → 2019-03-25 09:32 | Outpatient (CLI) | payer BC, SELFPAY ==
[2019-03-25 10:03] LABS: Basophils # 0.1 K/mm3 (0-0.2); Basophils % 0.7 % (0.1-2.0); Eosinophils # 0.4 K/mm3 (0.0-0.4); Eosinophils % 3.3 % (0.1-12.0); Hematocrit 46.4 % (37.0-47.0); Hemoglobin 14.8 g/dL (12.2-16.2); Lymphocytes # 3.2 K/mm3 (0.7-4.5); Mean Corpuscular HGB Conc 31.8 g/dL (31.8-35.4); Mean Corpuscular Hemoglobin 31.2 pg (27.0-31.2); Mean Platelet Volume 7.8 fl (7.4-10.4); Monocytes # 0.4 K/mm3 (0.1-1.0); Monocytes % 3.6 % (1.7-9.3); Neutrophils # 7.8 K/mm3 (1.8-7.8); Neutrophils % 65.4 % (37.0-80.0); Platelet Count 285 K/mm3 (142-424); Red Blood Count 4.74 M/mm3 (4.20-5.40); Red Cell Distribution Width 12.9 % (11.5-17.5); White Blood Count 11.8 K/mm3 (4.8-10.8)
[2019-03-25 11:15] LABS: Alanine Aminotransferase 14 U/L (12-78); Albumin Level 3.5 gm/dL (3.4-5.0); Albumin/Globulin Ratio 1.3 (1.1-1.8); Alkaline Phosphatase 96 U/L (46-116); Anion Gap 13.7 mEq/L (5-15); Aspartate Amino Transferase 5 U/L (15-37); Bilirubin,Total 0.4 mg/dL (0.2-1.0); Blood Urea Nitrogen 7 mg/dL (7-18); Calcium 8.3 mg/dL (8.5-10.1); Carbon Dioxide 25 mmol/L (21.0-32.0); Chloride 105 mmol/L (98-107); Chol/HDL Ratio 4.6 (1-3.5); Cholesterol 206 mg/dL (140-200); Creatinine,Serum 0.65 mg/dL (0.55-1.02); Estimated Glomerular Filt Rate 95 ml/min (>60); GFR (African American) 115 ML/MIN (>60); Globulin 2.8 gm/dl (1.3-3.2); Glucose 198 mg/dL (74-106); HDL Cholesterol 45 mg/dL (29-89); LDL Cholesterol 144 mg/dL (0-130); Potassium 3.7 mmoL/L (3.5-5.1); Sodium 140 mmol/L (136-145); T4 (Thyroxine) 8.3 ug/dl (4.7-13.3); Thyroid Stimulating Hormone 0.65 uIU/ml (0.358-3.740); Total Protein,Serum 6.3 gm/dL (6.4-8.2); Triglycerides 84 mg/dL (30-200); VLDL Cholesterol 17 mg/dL (0-40)
[2019-03-25 11:47] LABS: Hemoglobin A1C 9.6 % (0.0-7.0)
[2019-03-27 04:07] LABS: Creatinine, Urine 33.7 mg/dL (Not Estab.); Microalbumin, Urine <3.0 ug/mL (Not Estab.)
[2019-03-27 17:59] LABS: Vitamin D 25 Hydroxy 13.1 ng/mL (30.0-100.0)
== END ==
PROVIDERS: Visit Provider Nurse Practitioner Family
DX: E11.9 Type 2 diabetes mellitus without complications (principal); E55.9 Vitamin D deficiency, unspecified; Z79.84 Long term (current) use of oral hypoglycemic drugs; Z79.899 Other long term (current) drug therapy
CPT/HCPCS: 36415; 80053; 80061; 82043; 82570; 82652; 83036; 84436; 84443; 85025

== ENCOUNTER → 2019-08-19 14:41 | Outpatient (CLI) | payer BC, SELFPAY ==
[2019-08-19 15:18] LABS: Basophils # 0.1 K/mm3 (0-0.2); Basophils % 0.9 % (0.1-2.0); Eosinophils # 0.4 K/mm3 (0.0-0.4); Eosinophils % 2.5 % (0.1-12.0); Hematocrit 47.6 % (37.0-47.0); Hemoglobin 16.1 g/dL (12.2-16.2); Lymphocytes # 3.1 K/mm3 (0.7-4.5); Lymphocytes % 22.1 % (10-50); Mean Corpuscular HGB Conc 33.8 g/dL (31.8-35.4); Mean Corpuscular Hemoglobin 31.6 pg (27.0-31.2); Mean Corpuscular Volume 93.5 fl (81-99); Mean Platelet Volume 8.2 fl (7.4-10.4); Monocytes # 0.5 K/mm3 (0.1-1.0); Monocytes % 3.8 % (1.7-9.3); Neutrophils % 70.6 % (37.0-80.0); Platelet Count 286 K/mm3 (142-424); Red Blood Count 5.09 M/mm3 (4.20-5.40); Red Cell Distribution Width 12.8 % (11.5-17.5); White Blood Count 14.1 K/mm3 (4.8-10.8)
[2019-08-19 15:40] LABS: Chloride 107 mmol/L (98-107); Sodium 137 mmol/L (136-145)
[2019-08-19 15:41] LABS: Potassium 3.9 mmoL/L (3.5-5.1)
[2019-08-19 15:43] LABS: Alanine Aminotransferase 12 U/L (12-78); Albumin Level 4.4 g/dl (3.5-5.0); Albumin/Globulin Ratio 1.5 (1.1-1.8); Alkaline Phosphatase 115 U/L (38-126); Anion Gap 12.9 mEq/L (5-15); Aspartate Amino Transferase 16 U/L (14-36); Bilirubin,Total 0.8 mg/dl (0.2-1.3); Blood Urea Nitrogen 9 mg/dl (7-17); Carbon Dioxide 21 mmol/L (22.0-30.0); Cholesterol 269 mg/dl (140-200); Estimated Glomerular Filt Rate 105 ml/min (>60); GFR (African American) 127 ML/MIN (>60); Globulin 2.9 g/dL (1.3-3.2); Total Protein,Serum 7.3 g/dl (6.3-8.2); Triglycerides 232 mg/dl (30-150); VLDL Cholesterol 46 mg/dL (0-40)
[2019-08-19 15:44] LABS: Calcium 9.2 mg/dl (8.4-10.2); Glucose 241 mg/dl (74-100); HDL Cholesterol 67 mg/dl (40-60)
[2019-08-19 15:55] LABS: Direct LDL Cholesterol 189.95 mg/dL (100-129)
[2019-08-19 16:02] LABS: Amphetamine/Metha Screen,Urine Negative ng/ml (<1000)
[2019-08-19 16:03] LABS: Barbiturates Screen,Urine Negative ng/ml (<200); Benzodiazepines Screen,Urine Negative ng/ml (<200)
[2019-08-19 16:05] LABS: Cannabinoid Screen,Urine Positive ng/ml (<50)
[2019-08-19 16:06] LABS: Cocaine Screen,Urine Negative ng/ml (<300); Methadone Screen,Urine Negative ng/ml (<300)
[2019-08-19 16:07] LABS: Opiate Screen,Urine Negative ng/ml (<300)
[2019-08-19 16:08] LABS: Phencyclidine Screen,Urine Negative ng/ml (<25)
[2019-08-19 16:15] LABS: Thyroid Stimulating Hormone 1.32 uIU/mL (0.465-4.68)
[2019-08-19 19:34] LABS: Hemoglobin A1C 10.2 % (4.0-6.0)
[2019-08-21 08:09] LABS: Creatinine, Urine 144.6 mg/dL (Not Estab.)
[2019-08-22 08:25] LABS: Vitamin D 25 Hydroxy 15.3 ng/mL (30.0-100.0)
== END ==
PROVIDERS: Visit Provider Nurse Practitioner Family
DX: G57.92 Unspecified mononeuropathy of left lower limb (principal); E55.9 Vitamin D deficiency, unspecified; Z79.84 Long term (current) use of oral hypoglycemic drugs; Z79.899 Other long term (current) drug therapy; E11.40 Type 2 diabetes mellitus with diabetic neuropathy, unspecified
CPT/HCPCS: 80053; 80061; 80305; 82043; 82570; 82652; 83036; 84436; 84443; 85025

== ENCOUNTER → 2019-12-28 18:01 | Outpatient (CLI) | payer OTHER, SELFPAY ==
[2019-12-28 18:35] LABS: Basophils # 0.1 K/mm3 (0-0.2); Basophils % 0.8 % (0.1-2.0); Eosinophils # 0.3 K/mm3 (0.0-0.4); Eosinophils % 2.8 % (0.1-12.0); Hematocrit 50.2 % (37.0-47.0); Hemoglobin 16.1 g/dL (12.2-16.2); Lymphocytes # 4.2 K/mm3 (0.7-4.5); Lymphocytes % 35.5 % (10-50); Mean Corpuscular HGB Conc 32.1 g/dL (31.8-35.4); Mean Corpuscular Hemoglobin 31.8 pg (27.0-31.2); Mean Corpuscular Volume 99.1 fl (81-99); Monocytes # 0.5 K/mm3 (0.1-1.0); Monocytes % 3.9 % (1.7-9.3); Neutrophils # 6.6 K/mm3 (1.8-7.8); Neutrophils % 56.9 % (37.0-80.0); Platelet Count 332 K/mm3 (142-424); Red Blood Count 5.06 M/mm3 (4.20-5.40); Red Cell Distribution Width 12.9 % (11.5-17.5); White Blood Count 11.7 K/mm3 (4.8-10.8)
[2019-12-28 18:50] LABS: Hemoglobin A1C 8.4 % (4.0-6.0)
[2019-12-28 19:06] LABS: Alanine Aminotransferase 12 U/L (12-78); Albumin Level 4.5 g/dl (3.5-5.0); Albumin/Globulin Ratio 1.6 (1.1-1.8); Alkaline Phosphatase 106 U/L (38-126); Anion Gap 16.4 mEq/L (5-15); Aspartate Amino Transferase 19 U/L (14-36); Bilirubin,Total 0.7 mg/dl (0.2-1.3); Blood Urea Nitrogen 13 mg/dl (7-17); Calcium 9.7 mg/dl (8.4-10.2); Carbon Dioxide 21 mmol/L (22.0-30.0); Chloride 105 mmol/L (98-107); Chol/HDL Ratio 5.2 (1-3.5); Cholesterol 280 mg/dl (140-200); Estimated Glomerular Filt Rate 88 ml/min (>60); GFR (African American) 106 ML/MIN (>60); Globulin 2.8 g/dL (1.3-3.2); Glucose 333 mg/dl (74-100); HDL Cholesterol 54 mg/dl (40-60); Potassium 4.4 mmoL/L (3.5-5.1); Sodium 138 mmol/L (136-145); Total Protein,Serum 7.3 g/dl (6.3-8.2); Triglycerides 240 mg/dl (30-150); VLDL Cholesterol 48 mg/dL (0-40)
[2019-12-28 19:17] LABS: Direct LDL Cholesterol 200.32 mg/dL (100-129)
[2019-12-28 19:23] LABS: T4 (Thyroxine) 7.8 ug/dl (5.53-11.0)
[2019-12-28 19:39] LABS: Thyroid Stimulating Hormone 0.65 uIU/mL (0.465-4.68)
== END ==
PROVIDERS: Visit Provider Nurse Practitioner Family
DX: E11.65 Type 2 diabetes mellitus with hyperglycemia (principal); F41.9 Anxiety disorder, unspecified; G57.92 Unspecified mononeuropathy of left lower limb; Z79.84 Long term (current) use of oral hypoglycemic drugs
CPT/HCPCS: 80053; 80061; 83036; 84436; 84443; 85025

== ENCOUNTER → 2020-03-15 12:30 | Outpatient (CLI) | payer OTHER, SELFPAY ==
--- NOTE | 2020-03-15 12:37 | MM_ITS ---
PROCEDURE: MM DIG SCREENING MAMM BI W/CAD Referring Doctor: Jaron Lopes Patient Age:55Y CLINICAL INDICATION: breast cancer screening [age] year old, no hormones, no new complaints Family history-negative noncontributory COMPARISON: No exams were available for comparison baseline mammogram TECHNIQUE: Standard CC and MLO images were obtained. R2 CAD reviewed. Bilateral digital breast tomosynthesis included. FINDINGS: . Baseline mammogram with no previous studies for comparison [id number] density breast with scattered fibroglandular elements bilaterally. Right Breast-a very small 3.6 mm questionable nodular density superior right breast likely towards 1 o'clock is seen on on standard MLO views and also seen on MLO tomosynthesis image 35-however it dissipates and not evident on the cc image set and not felt to be of significance. However to be cautious and to confirm baseline I would recommend follow-up right mammogram 6 months but there is scattered small calcifications in right breast some loosely grouped but I believe these are benign calcifications but these would also benefit from follow-up to establish baseline Left breast-mole with skin mole marker seen at the medial breast posteriorly. Small densities at the lateral left breast on CC view appear to be overlapping vessels on the tomosynthesis image sets. A scattered benign-appearing fairly dense calcifications most evident at the medial left breast,. IMPRESSION: No discrete suspicious areas either breast-but there are minor asymmetric densities most likely due to overlapping shadows, that would benefit from bilateral six-month follow-up to confirm baseline/and stability RIGHT BREAST-small area of superior breast on MLO images dissipates on other views and most likely merely summation shadow, but I would suggest follow-up right mammogram. 6 months to confirm stability LEFT BREAST-areas of minor nodularity at the lateral left breast of on CC view dissipate on the MLO view at are most likely overlapping shadows from vascular structures Bilateral follow-up in 6 months suggested to better establish in confirm baseline, with annual follow-up protocol hopefully thereafter BI-RAD Category: 3 Probably Benign Finding Short Term Follow-up FOLLOW-UP: 6M 6 Month Follow-up (A letter has been sent to the patient regarding results of the study.) Dictated by: Wesley Mosher MD 03/23/2020 10:31 Wesley Mosher MD in [place] 03/23/2020 10:31
--- NOTE | 2020-03-15 13:07 | MR_ITS ---
PROCEDURE: MR CERVICAL SPINE WO CON (3D volume rendering MRI myelogram image set included) Referring Doctor: Jaron Lopes Patient Age:55Y CLINICAL INDICATION: neck pain upper extremity numbness and tingling COMPARISON: No exams were available for comparison TECHNIQUE: Standard multiplanar multiecho sequences are performed without contrast. 3-D MIP and myelographic images are also rendered and reviewed 3D volume rendering MRI myelogram image set included FINDINGS: The vertebral bodies are intact with no compression fractures or osseous lesions. Cervical cord normal in caliber and signal Moderate adequate volume underlying osseous spinal canal. More modest but adequate at C1 level measuring 13 mm AP. Cranial cervical junction appears satisfactory. Minor degenerative disc changes and spondylosis described below but with no spinal stenosis. Cervical cord normal in caliber and signal C2/3-disc intact on pulmonary mild central disc prominence C3/4. Minor degenerative disc changes and minor cervical spondylosis. Diffuse disc/early osteophyte features seen very slightly anterior aspect of the thecal sac on sagittal views.. Features do not not impact the cervical cord. Suspect subtle additional spurring towards right paracentral region. Overall features yield only minimal encroachment at entry of of the foramen bilaterally, right > left. C4/5 disc intact. C5/6.. Disc height fairly well maintained but there is mild broad-based minimal disc/osteophyte features with subtle bulge midline into the left; yielding very slightly indents the thecal sac midline and to the left. These minimal features do not impact the cervical cord. Only scant encroachment upon entry of left foramen. C6/7. Disc intact C7/T1 disc intact T1/T2 and T2/T3. Disc intact Only minor observations on the 3D MRI myelogram image set: . C5/6. Subtle anterior indentation upon thecal sac to midline and to the left at C5/6 is actually most evident on the these frontal projections from the 3D MRI myelogram image set . C3/4. Subtle diffuse anterior indentation of thecal sac at C3/4 Incidental note moderate adenoidal hypertrophy which remains slightly generous for this age patient. Are tonsils generous clinically? IMPRESSION: No spinal stenosis. No disc herniation Only minor early cervical spondylosis of at at C3/4 and C5/6: C3/4. Minor disc/osteophyte features yield very minimal, barely appreciable anterior of indentation of thecal sac with mild bilateral foraminal,, slightly more evident to the right C5/6. Minimal disc/osteophyte features yield minimal anterior indentation of thecal sac midline and to the left Dictated by: Wesley Mosher MD 03/21/2020 11:47 Wesley Mosher MD in [place] 03/21/2020 11:47
== END ==
PROVIDERS: PCP Nurse Practitioner Family; Visit Provider Emergency Medicine
DX: M50.90 Cervical disc disorder, unspecified, unspecified cervical region; Z12.31 Encounter for screening mammogram for malignant neoplasm of breast
CPT/HCPCS: 72141; 76376; 77063; 77067

== ENCOUNTER → 2020-05-24 17:37 | Outpatient (CLI) | payer OTHER, SELFPAY ==
[2020-05-24 18:00] LABS: Alanine Aminotransferase 11 U/L (12-78); Albumin Level 4.4 g/dl (3.5-5.0); Albumin/Globulin Ratio 1.4 (1.1-1.8); Alkaline Phosphatase 83 U/L (38-126); Anion Gap 15.1 mEq/L (5-15); Aspartate Amino Transferase 19 U/L (14-36); Bilirubin,Total 0.3 mg/dl (0.2-1.3); Blood Urea Nitrogen 10 mg/dl (7-17); Calcium 9.2 mg/dl (8.4-10.2); Carbon Dioxide 21 mmol/L (22.0-30.0); Chloride 110 mmol/L (98-107); Chol/HDL Ratio 4.8 (1-3.5); Cholesterol 266 mg/dl (140-200); Estimated Glomerular Filt Rate 75 ml/min (>60); GFR (African American) 90 ML/MIN (>60); Globulin 3.1 g/dL (1.3-3.2); Glucose 112 mg/dl (74-100); HDL Cholesterol 56 mg/dl (40-60); Potassium 4.1 mmoL/L (3.5-5.1); Sodium 142 mmol/L (136-145); Total Protein,Serum 7.5 g/dl (6.3-8.2); Triglycerides 323 mg/dl (30-150); VLDL Cholesterol 65 mg/dL (0-40)
[2020-05-24 18:10] LABS: Basophils # 0.1 K/mm3 (0-0.2); Basophils % 0.9 % (0.1-2.0); Eosinophils # 0.4 K/mm3 (0.0-0.4); Eosinophils % 3.7 % (0.1-12.0); Hematocrit 45.1 % (37.0-47.0); Hemoglobin 14.9 g/dL (12.2-16.2); Lymphocytes # 3.9 K/mm3 (0.7-4.5); Lymphocytes % 35.6 % (10-50); Mean Corpuscular HGB Conc 32.9 g/dL (31.8-35.4); Mean Corpuscular Hemoglobin 30.8 pg (27.0-31.2); Mean Corpuscular Volume 93.7 fl (81-99); Mean Platelet Volume 7.9 fl (7.4-10.4); Monocytes # 0.5 K/mm3 (0.1-1.0); Monocytes % 4.9 % (1.7-9.3); Neutrophils % 54.9 % (37.0-80.0); Platelet Count 307 K/mm3 (142-424); Red Blood Count 4.82 M/mm3 (4.20-5.40); Red Cell Distribution Width 13.4 % (11.5-17.5)
[2020-05-24 18:11] LABS: Direct LDL Cholesterol 167.02 mg/dL (100-129)
[2020-05-24 18:17] LABS: T4 (Thyroxine) 7.9 ug/dl (5.53-11.0)
[2020-05-24 18:31] LABS: Thyroid Stimulating Hormone 0.92 uIU/mL (0.465-4.68)
[2020-05-24 19:23] LABS: Hemoglobin A1C 8.3 % (4.0-6.0)
[2020-05-24 19:41] LABS: Microalbumin/Creatinine Ratio 41.5
[2020-05-24 19:42] LABS: Creatinine,Urine Random 39 mg/dL (Not Estab.)
== END ==
PROVIDERS: Visit Provider Nurse Practitioner Family
DX: E11.9 Type 2 diabetes mellitus without complications (principal); F41.9 Anxiety disorder, unspecified; Z79.899 Other long term (current) drug therapy
CPT/HCPCS: 80053; 80061; 82043; 82570; 83036; 84436; 84443; 85025

== ENCOUNTER 2020-07-06 09:57 | Emergency (ER) | payer OTHER, SELFPAY ==
--- NOTE | 2020-07-06 09:59 | HMH.EDGENADL ---
ED Disposition Clinical Impression: Ureterolithiasis Disposition: Home, Self-Care Condition on Discharge: Good Instructions: Kidney Stones -- Adult Referrals: Adeel Boyd APRN [Primary Care Provider] - 3 days Time of Disposition: 11:50 - Critical Care Critical Care Time: No Attestation: On , the high probability of a clinically significant, sudden or life threatening deterioration of the following system(s) required my full and direct attention, intervention and personal management. The time I documented below is in addition to time spent performing reported procedures but includes the following listed in this critical care notation. Medical Decision Making - Medical Records Medical records reviewed: Yes: I reviewed the patient's medical records. - Inder Inquiry Pt receiving controlled substance: No Vital Signs: 07/06/20 10:01 07/06/20 10:07 07/06/20 11:15 Temperature 98.1 F Temperature Source Oral Pulse Rate 61 61 Respiratory Rate 18 Blood Pressure 192/97 H 199/110 H Blood Pressure Mean 144 151 02 Sat by Pulse Oximetry 98 97 100 Oxygen Delivery Method Room Air - Lab Data Lab results reviewed: Yes: I reviewed the patient's lab results. Lab Results 07/06/20 10:05: WBC 15.2 H, RBC 4.98, Hgb 15.1, Hct 47.2 H, MCV 94.9, MCH 30.4, MCHC 32.0, RDW 13.6, Plt Count 262, MPV 7.1 L, Neut % (Auto) 80.5 H, Lymph % (Auto) 14.9, Hancock % (Auto) 2.4, Eos % (Auto) 1.9, Baso % (Auto) 0.3, Neut # (Auto) 12.2 H, Lymph # (Auto) 2.3, Hancock # (Auto) 0.4, Eos # (Auto) 0.3, Baso # (Auto) 0.1, Total Counted 100, Neutrophils % (Manual) 80 H, Lymphocytes % (Manual) 15, Monocytes % (Manual) 4, Eosinophils % (Manual) 1, Platelet Estimate Normal, RBC Morphology Normal 07/06/20 10:05: Sodium 136, Potassium 4.4, Chloride 106, Carbon Dioxide 20 L, Anion Gap 14.4, BUN 12, Creatinine 0.70, Estimated Creat Clear 99, Estimated GFR 87, Est GFR ( Amer) 106, Glucose 264 H, Calcium 9.0, Total Bilirubin 0.7, AST 21, ALT 17, Alkaline Phosphatase 99, Total Protein 7.6, Albumin 4.6, Globulin 3.0, Albumin/Globulin Ratio 1.5 07/06/20 10:17: Urine Color Yellow, Urine Appearance Cloudy, Urine pH 6.0, Ur Specific Kelley 1.025, Urine Protein Trace, Urine Glucose (UA) 2+, Urine Ketones 1+, Urine Blood 3+, Urine Nitrate Negative, Urine Bilirubin Negative, Urine Urobilinogen 0.2, Ur Leukocyte Esterase Negative, Urine RBC 50-100, Urine WBC None, Ur Squamous Epith Cells 10-20, Amorphous Sediment Trace, Urine Bacteria None Result diagrams: 07/06/20 10:05 07/06/20 10:05 Orders (Tests/Meds): ED MEDICATIONS Discontinued Medications Generic Name Dose Route Start Last Admin Trade Name Freq PRN Reason Stop Dose Admin Sodium Chloride 1,000 mls @ 999 mls/hr 07/06/20 10:15 07/06/20 10:09 Sod Chlor 0.9% 1000ml Bag IV 07/06/20 11:15 999 mls/hr .Q1H1M ESTBEAN Administration Ketorolac Tromethamine 30 mg 07/06/20 10:08 07/06/20 10:09 Ketorolac 30mg/Ml Vial IV 07/06/20 10:09 30 mg ONCE ONE Administration Morphine Sulfate 4 mg 07/06/20 11:37 07/06/20 11:38 Morphine 4mg/Ml Syringe IV 07/06/20 11:38 4 mg ONCE ONE Administration Ondansetron HCl 4 mg 07/06/20 10:08 07/06/20 10:09 Ondansetron 4mg/2ml Vial IV 07/06/20 10:09 4 mg ONCE ONE Administration Ondansetron HCl 4 mg 07/06/20 11:37 07/06/20 11:38 Ondansetron 4mg/2ml Vial IV 07/06/20 11:38 4 mg ONCE ONE Administration - CT Data CT Scan: Abdomen, Pelvis Time Received: 11:[address] Reviewed: Yes: I have reviewed the patient's CT results, I have viewed the radiologist's interpretation Preliminary Findings: Abnormal Findings Narrative: 5mm stone right-sided ureteral stone at the UVP J. Medical Decision Narrative: 55yo F evaluated with concern for kidney stone. Patient is in no acute distress on initial evaluation. She is treated with IV Toradol, Zofran. Bolused fluids. Urinalysis and CT are ordered. Urinalysis does not demonstrate any
[2020-07-06 10:01] VITALS: BP 192/97; PULSE 61; O2SAT 98
[2020-07-06 10:07] VITALS: RESP 18; TEMP 36.7; O2SAT 97; BMI 23.5
--- NOTE | 2020-07-06 10:10 | CT_ITS ---
PROCEDURE: CT ABDOMEN PELVIS WO CON CLINICAL INDICATION: R flank pain COMPARISON: CT ABDPELW CT ABD PELVIS W/ CONTRAST from 04/01/2013 TECHNIQUE: Axial images obtained with sagittal and coronal reformats. All CT scans at the facility use one or more dose reduction, viz: automated exposure control, ma/kV adjustment per patient size (including targeted exams where dose is matched to indication, i.e. head), or iterative reconstruction technique. FINDINGS: LOWER THORAX: Coronary artery calcification. ABDOMEN & PELVIS: Prior cholecystectomy. The liver, spleen, adrenal glands, and pancreas have an unremarkable appearance. There are bilateral renal calculi measuring up to 4 mm in the lower pole on the left. There is mild right hydronephrosis and hydroureter secondary to a 5 mm stone in the distal right ureter. 4 mm stone is present in the upper pole of the right kidney. There is mild stranding of the right perinephric renal fat. There are small periportal lymph nodes which appear stable measuring up to 1.4 cm. No evidence of appendicitis. There is mild diffuse thickening of the colon throughout which could be due to colitis or nondistention. There are scattered colonic diverticula but no evidence of diverticulitis. There is an air-fluid level within the cecum. No evidence of intestinal obstruction or free air. There are degenerative changes in the lumbar spine. Mild sclerosis of the SI joints. IMPRESSION: 1. 4 mm right distal ureteral stone. The stone is 1 cm proximal to the UVJ. There is [id number] right-sided hydronephrosis and hydroureter. 2. Bilateral nephrolithiasis. 3. Mild diffuse thickened appearance of the colon which could be due to colitis or nondistention. 4. Colonic diverticulosis without diverticulitis. Dictated by: Michael Coker MD 07/06/2020 11:34 Michael Coker MD in [place] 07/06/2020 11:34
[2020-07-06 10:17] LABS: Basophils # 0.1 K/mm3 (0-0.2); Basophils % 0.3 % (0.1-2.0); Eosinophils # 0.3 K/mm3 (0.0-0.4); Eosinophils % 1.9 % (0.1-12.0); Hematocrit 47.2 % (37.0-47.0); Hemoglobin 15.1 g/dL (12.2-16.2); Lymphocytes # 2.3 K/mm3 (0.7-4.5); Lymphocytes % 14.9 % (10-50); Mean Corpuscular Hemoglobin 30.4 pg (27.0-31.2); Mean Corpuscular Volume 94.9 fl (81-99); Mean Platelet Volume 7.1 fl (7.4-10.4); Monocytes # 0.4 K/mm3 (0.1-1.0); Monocytes % 2.4 % (1.7-9.3); Neutrophils # 12.2 K/mm3 (1.8-7.8); Neutrophils % 80.5 % (37.0-80.0); Platelet Count 262 K/mm3 (142-424); Red Blood Count 4.98 M/mm3 (4.20-5.40); Red Cell Distribution Width 13.6 % (11.5-17.5); White Blood Count 15.2 K/mm3 (4.8-10.8)
[2020-07-06 10:20] LABS: MANUAL DIFFERENTIAL MANUAL DIFFERENTIAL (MANUAL DIFF)
[2020-07-06 10:22] LABS: Chloride 106 mmol/L (98-107); Potassium 4.4 mmoL/L (3.5-5.1); Sodium 136 mmol/L (136-145)
[2020-07-06 10:22] LABS: Microscopic, Urine URINE MICROSCOPIC (MICROSCOPIC)
[2020-07-06 10:24] LABS: Appearance,Urine CLOUDY (Clear); Bilirubin,Urine Negative (Negative); Blood, Urine 3+ (Negative); Color,Urine YELLOW (Yellow); Glucose,Urine (UA) 2+ (Negative); Ketones,Urine 1+ (Negative); Leukocyte Esterase,Urine Negative (Negative); Nitrate,Urine Negative (Negative); Protein,Urine TRACE (Negative); Specific Gravity, Urine 1.025 (1.005-1.030); Urobilinogen,Urine 0.2 EU/dl (0.2)
[2020-07-06 10:25] LABS: Alanine Aminotransferase 17 U/L (12-78); Albumin Level 4.6 g/dl (3.5-5.0); Albumin/Globulin Ratio 1.5 (1.1-1.8); Alkaline Phosphatase 99 U/L (38-126); Anion Gap 14.4 mEq/L (5-15); Aspartate Amino Transferase 21 U/L (14-36); Bilirubin,Total 0.7 mg/dl (0.2-1.3); Blood Urea Nitrogen 12 mg/dl (7-17); Carbon Dioxide 20 mmol/L (22.0-30.0); Creatinine Clearance Estimated 99 mL/min (50-200); Estimated Glomerular Filt Rate 87 ml/min (>60); GFR (African American) 106 ML/MIN (>60); Total Protein,Serum 7.6 g/dl (6.3-8.2)
[2020-07-06 10:26] LABS: Glucose 264 mg/dl (74-100)
[2020-07-06 10:33] LABS: Eosinophils % 1 % (0-3); Lymphocytes % 15 % (10-50); Monocytes % 4 % (2-9); Neutrophils % 80 % (42-76); Platelet Estimate Normal; RBC Morphology Normal; Total Cells Counted 100
[2020-07-06 10:37] LABS: Amorphous Sediment,Urine Trace /lpf; RBC,Urine 50-100 #/hpf (0-3)
[2020-07-06 11:15] VITALS: BP 199/110; PULSE 61; O2SAT 100
--- NOTE | 2020-07-06 11:35 | PC.NURSE ---
pt still having alot of pain and nausea , new med order received from
[2020-07-06 12:07] VITALS: BP 179/99; PULSE 100; RESP 18; TEMP 36.7; O2SAT 97
== END 2020-07-06 12:10 | disposition home or self-care (01) ==
PROVIDERS: Emergency Provider Family Medicine; PCP Nurse Practitioner Family
DX: N20.1 Calculus of ureter (principal); F41.8 Other specified anxiety disorders; E78.5 Hyperlipidemia, unspecified; I10 Essential (primary) hypertension; F17.210 Nicotine dependence, cigarettes, uncomplicated; Z79.899 Other long term (current) drug therapy
CPT/HCPCS: 74176; 80053; 81001; 85007; 85025; 96374; 96375; 99282; J2405

== ENCOUNTER → 2020-08-22 18:07 | Outpatient (CLI) | payer OTHER, SELFPAY ==
[2020-08-22 19:53] LABS: Amphetamine/Metha Screen,Urine Negative ng/ml (<1000); Barbiturates Screen,Urine Negative ng/ml (<200)
[2020-08-22 19:54] LABS: Benzodiazepines Screen,Urine Negative ng/ml (<200)
[2020-08-22 19:55] LABS: Cannabinoid Screen,Urine Positive ng/ml (<50); Cocaine Screen,Urine Negative ng/ml (<300)
[2020-08-22 19:56] LABS: Methadone Screen,Urine Negative ng/ml (<300); Opiate Screen,Urine Negative ng/ml (<300)
[2020-08-22 19:57] LABS: Phencyclidine Screen,Urine Negative ng/ml (<25)
== END ==
PROVIDERS: Visit Provider Nurse Practitioner Family
DX: G57.92 Unspecified mononeuropathy of left lower limb (principal)
CPT/HCPCS: 80305

== ENCOUNTER → 2020-09-14 13:33 | Outpatient (CLI) | payer OTHER, SELFPAY ==
--- NOTE | 2020-09-14 13:41 | MM_ITS ---
PROCEDURE: MM DIG MAMM BI DX W/CAD Digital Breast Tomosynthesis Included CLINICAL INDICATION: abnormal screening/ 6 mth followup Follow-up abnormal mammogram COMPARISON: MG MM DIG SCREENING MAMM BI W/CAD from 03/15/2020 TECHNIQUE: Standard CC and MLO images and 3D Tomosynthesis was obtained. R2 CAD reviewed. FINDINGS: Average fibroglandular tissue. Right breast: Minor areas of asymmetry are present in the superior right breast anterior 1/3 3 cm cephalad to the nipple not significantly changed. The left breast has an unremarkable appearance. No malignant appearing mass or malignant-appearing microcalcification. IMPRESSION: BI-RAD Category: 2 Benign Finding FOLLOW-UP: Suggest return to screening in 6 months to confirm 1 year stability. (A letter has been sent to the patient regarding results of the study.) Dictated by: Michael Coker MD 09/24/2020 08:55 Michael Coker MD in [place] 09/24/2020 08:55
== END ==
PROVIDERS: PCP Nurse Practitioner Family; Visit Provider Nurse Practitioner Family
DX: R92.8 Other abnormal and inconclusive findings on diagnostic imaging of breast (principal)
CPT/HCPCS: 77062; 77066; G0279

== ENCOUNTER → 2020-11-21 17:51 | Outpatient (CLI) | payer OTHER, SELFPAY ==
[2020-11-21 19:00] LABS: Microalbumin/Creatinine Ratio 21.8
[2020-11-21 19:05] LABS: Chloride 109 mmol/L (98-107); Sodium 141 mmol/L (136-145)
[2020-11-21 19:06] LABS: Potassium 4.5 mmoL/L (3.5-5.1)
[2020-11-21 19:07] LABS: Creatinine,Urine Random 116 mg/dL (Not Estab.)
[2020-11-21 19:08] LABS: Alanine Aminotransferase 11 U/L (12-78); Albumin Level 4.1 g/dl (3.5-5.0); Albumin/Globulin Ratio 1.3 (1.1-1.8); Alkaline Phosphatase 108 U/L (38-126); Anion Gap 14.5 mEq/L (5-15); Aspartate Amino Transferase 20 U/L (14-36); Bilirubin,Total 0.4 mg/dl (0.2-1.3); Blood Urea Nitrogen 7 mg/dl (7-17); Carbon Dioxide 22 mmol/L (22.0-30.0); Cholesterol 270 mg/dl (140-200); Estimated Glomerular Filt Rate 104 ml/min (>60); GFR (African American) 126 ML/MIN (>60); Globulin 3.1 g/dL (1.3-3.2); Total Protein,Serum 7.2 g/dl (6.3-8.2); Triglycerides 260 mg/dl (30-150); VLDL Cholesterol 52 mg/dL (0-40)
[2020-11-21 19:09] LABS: Calcium 9.1 mg/dl (8.4-10.2); Chol/HDL Ratio 4.7 (1-3.5); Glucose 114 mg/dl (74-100); HDL Cholesterol 58 mg/dl (40-60)
[2020-11-21 19:10] LABS: Basophils # 0.1 K/mm3 (0-0.2); Basophils % 0.9 % (0.1-2.0); Eosinophils # 0.4 K/mm3 (0.0-0.4); Eosinophils % 3.2 % (0.1-12.0); Hematocrit 47.1 % (37.0-47.0); Hemoglobin 15.3 g/dL (12.2-16.2); Lymphocytes # 3.7 K/mm3 (0.7-4.5); Lymphocytes % 32.3 % (10-50); Mean Corpuscular HGB Conc 32.6 g/dL (31.8-35.4); Mean Corpuscular Hemoglobin 31.8 pg (27.0-31.2); Mean Corpuscular Volume 97.6 fl (81-99); Mean Platelet Volume 8.9 fl (7.4-10.4); Monocytes # 0.4 K/mm3 (0.1-1.0); Monocytes % 3.6 % (1.7-9.3); Neutrophils # 6.9 K/mm3 (1.8-7.8); Neutrophils % 59.9 % (37.0-80.0); Platelet Count 354 K/mm3 (142-424); Red Blood Count 4.83 M/mm3 (4.20-5.40); Red Cell Distribution Width 13.8 % (11.5-17.5); White Blood Count 11.4 K/mm3 (4.8-10.8)
[2020-11-21 19:12] LABS: Amphetamine/Metha Screen,Urine Negative ng/ml (<1000)
[2020-11-21 19:14] LABS: Barbiturates Screen,Urine Negative ng/ml (<200); Benzodiazepines Screen,Urine Negative ng/ml (<200)
[2020-11-21 19:15] LABS: Cannabinoid Screen,Urine Positive ng/ml (<50)
[2020-11-21 19:16] LABS: Cocaine Screen,Urine Negative ng/ml (<300); Methadone Screen,Urine Negative ng/ml (<300)
[2020-11-21 19:17] LABS: Opiate Screen,Urine Negative ng/ml (<300)
[2020-11-21 19:19] LABS: Phencyclidine Screen,Urine Negative ng/ml (<25)
[2020-11-21 19:24] LABS: 25-OH Vitamin D, Total 21.3 ng/mL (30-100)
[2020-11-21 19:29] LABS: T4 (Thyroxine) 8.5 ug/dl (5.53-11.0)
[2020-11-21 19:31] LABS: Direct LDL Cholesterol 160.51 mg/dL (100-129)
[2020-11-21 19:42] LABS: Thyroid Stimulating Hormone 2.52 uIU/mL (0.465-4.68)
== END ==
PROVIDERS: Visit Provider Nurse Practitioner Family
DX: E11.65 Type 2 diabetes mellitus with hyperglycemia (principal); F41.9 Anxiety disorder, unspecified; G57.92 Unspecified mononeuropathy of left lower limb; M54.9 Dorsalgia, unspecified; E55.9 Vitamin D deficiency, unspecified; Z72.0 Tobacco use; Z79.84 Long term (current) use of oral hypoglycemic drugs
CPT/HCPCS: 80053; 80061; 80305; 82043; 82306; 82570; 83036; 84436; 84443; 85025

== ENCOUNTER 2020-12-17 18:34 | Emergency (ER) | payer OTHER, SELFPAY ==
[2020-12-17 18:59] VITALS: BMI 25.0
--- NOTE | 2020-12-17 19:00 | CT_ITS ---
PROCEDURE INFORMATION: Exam: CT Abdomen And Pelvis Without Contrast Exam date and time: 12/17/2020 7:00 PM Age: 55 years old Clinical indication: Abdominal pain; Additional info: Stone protocol TECHNIQUE: Imaging protocol: Computed tomography of the abdomen and pelvis without contrast. Radiation optimization: All CT scans at this facility use at least one of these dose optimization techniques: automated exposure control; mA and/or kV adjustment per patient size (includes targeted exams where dose is matched to clinical indication); or iterative reconstruction. COMPARISON: CT ABDOMEN PELVIS WO CON 07/06/2020 10:38 AM FINDINGS: Lungs: Mild scarring and atelectasis in the lower lungs. Liver: Normal. No mass. Gallbladder and bile ducts: Gallbladder is absent. Pancreas: [id number] pancreatic atrophy. Spleen: Normal. No splenomegaly. Adrenal glands: Normal. No mass. Kidneys and ureters: Right hydronephrosis secondary to calculi in the distal ureter near the UVJ. The largest measures 5 mm in diameter. Nonobstructing bilateral nephrolithiasis. Stomach and bowel: Mild sigmoid diverticulosis without diverticulitis. Appendix: Unremarkable appendix. Intraperitoneal space: Unremarkable. No free air. No significant fluid collection. Vasculature: Mild atherosclerotic changes of the arteries. Coronary artery disease. Lymph nodes: Unremarkable. No enlarged lymph nodes. Urinary bladder: Unremarkable as visualized. Reproductive: Status post tubal ligation. Bones/joints: Chronic pars defects of L5. Soft tissues: Unremarkable. IMPRESSION: 1. Right hydronephrosis secondary to calculi in the distal ureter near the UVJ. The largest measures 5 mm in diameter. 2. Nonobstructing bilateral nephrolithiasis.
[2020-12-17 19:20] LABS: Basophils # 0.1 K/mm3 (0-0.2); Basophils % 0.5 % (0.1-2.0); Eosinophils # 0.1 K/mm3 (0.0-0.4); Eosinophils % 0.9 % (0.1-12.0); Hematocrit 44.3 % (37.0-47.0); Hemoglobin 14.7 g/dL (12.2-16.2); Lymphocytes # 2.2 K/mm3 (0.7-4.5); Lymphocytes % 14.5 % (10-50); Mean Corpuscular HGB Conc 33.2 g/dL (31.8-35.4); Mean Corpuscular Hemoglobin 31.9 pg (27.0-31.2); Mean Corpuscular Volume 96.2 fl (81-99); Mean Platelet Volume 7.8 fl (7.4-10.4); Monocytes # 0.7 K/mm3 (0.1-1.0); Monocytes % 4.7 % (1.7-9.3); Neutrophils # 12.1 K/mm3 (1.8-7.8); Neutrophils % 79.4 % (37.0-80.0); Platelet Count 361 K/mm3 (142-424); Red Cell Distribution Width 13.3 % (11.5-17.5); White Blood Count 15.3 K/mm3 (4.8-10.8)
[2020-12-17 19:27] LABS: MANUAL DIFFERENTIAL MANUAL DIFFERENTIAL (MANUAL DIFF)
[2020-12-17 19:29] LABS: Alanine Aminotransferase 13 U/L (12-78); Albumin Level 4.1 g/dl (3.5-5.0); Albumin/Globulin Ratio 1.3 (1.1-1.8); Alkaline Phosphatase 104 U/L (38-126); Anion Gap 11.8 mEq/L (5-15); Aspartate Amino Transferase 18 U/L (14-36); Bilirubin,Total 0.5 mg/dl (0.2-1.3); Blood Urea Nitrogen 14 mg/dl (7-17); Carbon Dioxide 24 mmol/L (22.0-30.0); Chloride 104 mmol/L (98-107); Creatinine Clearance Estimated 67 mL/min (50-200); Estimated Glomerular Filt Rate 52 ml/min (>60); GFR (African American) 63 ML/MIN (>60); Globulin 3.2 g/dL (1.3-3.2); Glucose 347 mg/dl (74-100); Potassium 3.8 mmoL/L (3.5-5.1); Sodium 136 mmol/L (136-145); Total Protein,Serum 7.3 g/dl (6.3-8.2)
[2020-12-17 19:43] LABS: Lymphocytes % 18 % (10-50); Monocytes % 4 % (2-9); Neutrophils % 78 % (42-76); Platelet Estimate Normal; RBC Morphology Normal; Total Cells Counted 100
[2020-12-17 20:21] VITALS: BP 110/78; PULSE 88; RESP 17; TEMP 36.8; O2SAT 98; BMI 25.0
[2020-12-17 20:28] LABS: Microscopic, Urine URINE MICROSCOPIC (MICROSCOPIC)
[2020-12-17 20:31] LABS: Appearance,Urine SL CLOUDY (Clear); Blood, Urine TRACE-I (Negative); Color,Urine YELLOW (Yellow); Glucose,Urine (UA) 2+ (Negative); Ketones,Urine TRACE (Negative); Leukocyte Esterase,Urine Negative (Negative); Nitrate,Urine Negative (Negative); Protein,Urine TRACE (Negative); Specific Gravity, Urine 1.025 (1.005-1.030)
[2020-12-17 20:40] LABS: Bilirubin,Urine 1+ (Negative)
--- NOTE | 2020-12-17 20:40 | HMH.EDNVD ---
ED Disposition Clinical Impression: Renal colic on right side Disposition: Home, Self-Care Condition on Discharge: Good Instructions: DI for Kidney Stones Additional Instructions: fluids and see urology Referrals: Adeel Boyd APRN [Primary Care Provider] - - Critical Care Critical Care Time: No Attestation: On 12/17/20, the high probability of a clinically significant, sudden or life threatening deterioration of the following system(s) required my full and direct attention, intervention and personal management. The time I documented below is in addition to time spent performing reported procedures but includes the following listed in this critical care notation. Medical Decision Making - Medical Records Medical records reviewed: Yes: I reviewed the patient's medical records. - Inder Inquiry Pt receiving controlled substance: No Vital Signs: 12/17/20 20:21 Temperature 98.2 F Temperature Source Oral Pulse Rate [Right] 88 Respiratory Rate 17 Blood Pressure [Right Arm] 110/78 Blood Pressure Mean [Right Arm] 88 Blood Pressure Source [Right Arm] Automatic Cuff 02 Sat by Pulse Oximetry 98 Oxygen Delivery Method Room Air - Lab Data Lab results reviewed: Yes: I reviewed the patient's lab results. Lab Results 12/17/20 19:10: WBC 15.3 H, RBC 4.60, Hgb 14.7, Hct 44.3, MCV 96.2, MCH 31.9 H, MCHC 33.2, RDW 13.3, Plt Count 361, MPV 7.8, Neut % (Auto) 79.4, Lymph % (Auto) 14.5, Angelina % (Auto) 4.7, Eos % (Auto) 0.9, Baso % (Auto) 0.5, Neut # (Auto) 12.1 H, Lymph # (Auto) 2.2, Angelina # (Auto) 0.7, Eos # (Auto) 0.1, Baso # (Auto) 0.1, Total Counted 100, Neutrophils % (Manual) 78 H, Lymphocytes % (Manual) 18, Monocytes % (Manual) 4, Platelet Estimate Normal, RBC Morphology Normal 12/17/20 19:10: Sodium 136, Potassium 3.8, Chloride 104, Carbon Dioxide 24, Anion Gap 11.8, BUN 14, Creatinine 1.10 H, Estimated Creat Clear 67, Estimated GFR 52 L, Est GFR ( Amer) 63, Glucose 347 H, Calcium 9.0, Total Bilirubin 0.5, AST 18, ALT 13, Alkaline Phosphatase 104, Total Protein 7.3, Albumin 4.1, Globulin 3.2, Albumin/Globulin Ratio 1.3 12/17/20 20:27: Urine Color Yellow, Urine Appearance Sl cloudy, Urine pH 6.0, Ur Specific Moyers 1.025, Urine Protein Trace, Urine Glucose (UA) 2+, Urine Ketones Trace, Urine Blood Trace-i, Urine Nitrate Negative, Urine Bilirubin 1+ A, Urine Urobilinogen 1.0, Ur Leukocyte Esterase Negative Result diagrams: 12/17/20 19:10 12/17/20 19:10 Orders (Tests/Meds): ED MEDICATIONS Generic Name Dose Route Start Last Admin Trade Name Freq PRN Reason Stop Dose Admin Sodium Chloride 1,000 mls @ 999 mls/hr 12/17/20 19:15 12/17/20 19:13 Sod Chlor 0.9% 1000ml Bag IV 12/17/20 20:15 999 mls/hr .Q1H1M ESTEBAN Administration Discontinued Medications Generic Name Dose Route Start Last Admin Trade Name Freq PRN Reason Stop Dose Admin Acetaminophen/Codeine Phosphate 1 nicolasa 12/17/20 20:51 Acetaminophen 300mg W/Codeine 30mg Take Home Pack (6) PO 12/17/20 20:52 ONCE ONE Ketorolac Tromethamine 30 mg 12/17/20 19:01 12/17/20 19:13 Ketorolac 30mg/Ml Vial IV 12/17/20 19:02 30 mg ONCE ONE Administration Ondansetron HCl 4 mg 12/17/20 19:01 12/17/20 19:13 Ondansetron 4mg/2ml Vial IV 12/17/20 19:02 4 mg ONCE ONE Administration ORDERS Category Date Time Status Urinalysis-Acute [Urinalysis and Microscopic] Stat Lab 12/17/20 20:27 Results - CT Data CT Scan: Abdomen, Pelvis Time Received: 20:[address] Reviewed: Yes: I have viewed the radiologist's interpretation Preliminary Findings: Abnormal Medical Decision Narrative: please call pcp and rocco in am Nausea/Vomiting/Diarrhea HPI - General Chief complaint: Abdominal Pain Stated complaint: Kidney stone Time Seen by Provider: 12/17/20 20:41 Mode of Arrival: Family Vehicle Source of Information: Patient, Medical Record Limitations: No Limitations Description of Symptoms (Recalled from ER Triage Doc. by RN
[2020-12-17 20:55] LABS: Bacteria,Urine 1+ /lpf; Calcium Oxalate Crystals,Urine Trace /lpf; WBC,Urine 20-50 #/hpf (0-3)
[2020-12-17 20:58] VITALS: BP 110/78; PULSE 78; RESP 14; TEMP 37.2; O2SAT 97
== END 2020-12-17 21:05 | disposition home or self-care (01) ==
PROVIDERS: Family Medicine; Emergency Provider Emergency Medicine; PCP Nurse Practitioner Family
DX: N23 Unspecified renal colic (principal); Z87.442 Personal history of urinary calculi; E11.9 Type 2 diabetes mellitus without complications; E78.5 Hyperlipidemia, unspecified; I10 Essential (primary) hypertension; F41.8 Other specified anxiety disorders; F17.210 Nicotine dependence, cigarettes, uncomplicated
CPT/HCPCS: 74176; 80053; 81001; 85007; 85025; 87086; 96365; 99282; J2405

== ENCOUNTER → 2020-12-18 12:44 | Outpatient (CLI) | payer OTHER, SELFPAY ==
--- NOTE | 2020-12-18 12:52 | XR_ITS ---
PROCEDURE: XR KUB CLINICAL INDICATION: kidney stone COMPARISON: CT CT ABDOMEN PELVIS WO CON from 12/17/2020 FINDINGS: There is a 4 mm stone or small cluster of stones projecting over the lower pole of the left kidney. 2 mm stone is present in the mid polar region of the right kidney. Stool is present within the colon overlying the right pelvic area. A vague area of density noted projecting through this stool measuring 4 mm is present in the right pelvic area may be due to a residual ureterovesical junction stone. There are bilateral tubal ligation clips. IMPRESSION: Bilateral nephrolithiasis with possible residual 4 mm right UVJ stone Dictated by: Michael Coker MD 12/18/2020 16:53 Michael Coker MD in [place] 12/18/2020 16:53
== END ==
PROVIDERS: PCP Nurse Practitioner Family; Visit Provider Urology
DX: Z01.812 Encounter for preprocedural laboratory examination (principal); Z11.52 Encounter for screening for COVID-19; N20.0 Calculus of kidney; N20.1 Calculus of ureter
CPT/HCPCS: 74018; C9803; U0003; U0005

== ENCOUNTER 2020-12-21 06:00 | Day surgery (SDC) | payer OTHER, SELFPAY ==
[2020-12-19 10:07] VITALS: BMI 25.1
[2020-12-21] VITALS (8 sets, daily range): BP systolic 138–160; BP diastolic 76–89; PULSE 67–75; RESP 12–18; TEMP 36.3–36.8; O2SAT 92–98
[2020-12-21 06:40] LABS: Basophils # 0.1 K/mm3 (0-0.2); Basophils % 0.6 % (0.1-2.0); Eosinophils # 0.3 K/mm3 (0.0-0.4); Eosinophils % 2.6 % (0.1-12.0); Hematocrit 44.5 % (37.0-47.0); Hemoglobin 14.4 g/dL (12.2-16.2); Lymphocytes # 2.2 K/mm3 (0.7-4.5); Lymphocytes % 18.6 % (10-50); Mean Corpuscular HGB Conc 32.3 g/dL (31.8-35.4); Mean Corpuscular Hemoglobin 32.1 pg (27.0-31.2); Mean Corpuscular Volume 99.4 fl (81-99); Mean Platelet Volume 8.6 fl (7.4-10.4); Monocytes # 0.5 K/mm3 (0.1-1.0); Monocytes % 3.8 % (1.7-9.3); Neutrophils # 8.9 K/mm3 (1.8-7.8); Neutrophils % 74.3 % (37.0-80.0); Platelet Count 344 K/mm3 (142-424); Red Blood Count 4.48 M/mm3 (4.20-5.40); Red Cell Distribution Width 14.1 % (11.5-17.5); White Blood Count 11.9 K/mm3 (4.8-10.8)
[2020-12-21 06:49] LABS: Chloride 110 mmol/L (98-107); Potassium 3.8 mmoL/L (3.5-5.1); Sodium 140 mmol/L (136-145)
[2020-12-21 06:52] LABS: Blood Urea Nitrogen 9 mg/dl (7-17); Creatinine Clearance Estimated 123 mL/min (50-200); Estimated Glomerular Filt Rate 104 ml/min (>60); GFR (African American) 126 ML/MIN (>60)
[2020-12-21 06:53] LABS: Anion Gap 10.8 mEq/L (5-15); Calcium 8.7 mg/dl (8.4-10.2); Carbon Dioxide 23 mmol/L (22.0-30.0); Glucose 283 mg/dl (74-100)
[2020-12-21 06:59] LABS: POC Glucose,Bedside 269 (70-110)
--- NOTE | 2020-12-21 07:34 | HMH.ANESCL ---
[facility] Anesthesia Checklist - Structural Data Admitted From: Home Planned Operative Procedure/s: ureteroscopy Consent for Planned Operative Procedure(s) Verified: Yes - Additional verifications Anesthesia Reactions: No Hx Blood Transfusions: No Blood Transfusion Reaction: No - Airway Assessment C-Spine Mobility Assessed: Yes TMJ Mobility Assessed: Yes Dentition: Edentulous - Neurological Assessment Level of Consciousness: Awake, Alert, Appropriate - Anesthesia Plan Anesthesia Risk discussed: Yes Anesthesia Plan: Verified ASA Class: III Anesthesia Type: General [facility] History I have reviewed the patient's past medical history: Yes Medical History: Reports:: Anxiety, Depression, Diabetes Mellitus Type 2, Hyperlipidemia, Hypertension, Kidney Stones Denies:: Cancer, Diabetes Mellitus Type 1, Internal Pacemaker, MRSA, Seizures *Have you ever received a pneumonia vaccine?: No *Have you received a flu vaccine this season?: No Other Medical History: Reports: Other. Denies: Blood Transfusion Reaction Anesthesia experience/problems:: none Laterality Cases: Left: Arthroscopy Knee Other Surgeries: Yes: No Previous Surgery, Cholecystectomy, Tubal Ligation, Other. No: Pacemaker Amputation: No Fractures: No - *Social History Last grade of school completed: High school graduate Smoking Status: Current every day smoker Tobacco Type: cigarettes # Packs/Day (cigarettes): 1 Alcohol Intake: never Substance Use Type: denies use *Occupational Status:: retired Housing: house Household Members: spouse *Travel in the last 8 weeks: None - Psychiatric History Pschychiatric History:: Reports:: Anxiety, Depression Family Hx:: No significant family history
--- NOTE | 2020-12-21 08:00 | XR_ITS ---
PROCEDURE: XR KUB CLINICAL INDICATION: URETEROSCOPY RT SIDE COMPARISON: CT CT ABDOMEN PELVIS WO CON from 12/17/2020 FINDINGS: A single fluoroscopic spot film with limited field of view shows the pigtail of the right ureteral stent likely in proper position within the right renal pelvis. A 2nd fluoroscopic spot film position over the lower pelvis shows the pigtail the lower extent of the stent projecting over the right superior pubic ramus. The low position of the stent suggests some degree of pelvic floor relaxation. Fluoroscopic time 44 seconds IMPRESSION: Satisfactory placement of right ureteral stent Dictated by: Dr. Harish Oliva MD 12/21/2020 14:12 Dr. Harish Oliva MD in [place] 12/21/2020 14:12
--- NOTE | 2020-12-21 08:34 | HMH.ANESI ---
[facility] Anesthesia Record Part I Intake, IV Amount: 900 Estimated blood loss (mL): 0 Urine output (mL): 0 Blood Pressure: 155/76 SaO2: 97 Pulse Rate: 74 Respiratory Rate: 12 Temperature: 97.6 F Patient is:: Awake, Stable Stable to PACU at:: 08:30
[2020-12-21 08:44] LABS: POC Glucose,Bedside 181 (70-110)
--- NOTE | 2020-12-21 08:50 | P.OP_ITS ---
Date of procedure: 12/21/20 Pre-op Diagnosis:: Right distal ureteral calculi Post-op Diagnosis:: Right distal ureteral X3, right ureteral orifice Procedure performed:: Cystoscopy with right ureteral dilation, right ureteroscopy with stone extraction and right stent placement Surgeon:: Mono Tabor MD BASKET BOTTOM MACHINE OPERATOR:: Ignacio Hammonds Anesthesia: LMA Estimated blood loss (mL): 0 Clinical Note:: 55-year-old white female with recent right renal colic noted to have obstructing ureteral calculi in the distal ureter on CT scan. Presents for urologic management. Operative findings:: Right distal ureteral calculi, stenotic right ureteral orifice Operative note:: Patient taken to the operating room after was obtained. She was placed on the operating table in the supine position and general anesthesia administered. Preoperative antibiotics and sequential compression devices placed. She was then placed in the dorsal lithotomy position and prepped and draped in the standard surgical fashion. 22 [place] cystoscope passed into the urethra and into the bladder without difficulty. The bladder was examined in a systematic fashion. There was no evidence of mucosal abnormalities, stones, trabeculation or diverticula. The ureteral orifices in their normal anatomic position. There did appear some edema of the right trigone. A 5 [place] ureteral catheter was passed into the right ureteral orifice and. Guidewire then passed through the ureteral catheter and we were able to pass the wire by the stone and into the right renal pelvis. The ureteral cath was then removed and the right ureteral orifice was dilated with a 15 mm UroMax balloon dilator for 2 minutes at 12 avni. The balloon then deflated and removed. The cystoscope was removed. Semirigid ureteroscope then passed through the urethra into the bladder and into the right ureter and up to the level of the stones. A 2.4 [place] Irish nitinol stone basket then passed through the ureteroscope and the stones were removed without difficulty. After all stones were removed the ureteroscope was removed and the cystoscope was replaced over the guidewire and a 4.8 x 24 [place] stent was passed over the guidewire. Under fluoroscopy the guidewire was removed and a curl was noted proximally and distally. String was left on for later removal. Patient tolerated the procedure well there are no complications. Condition: stable Disposition: PACU Specimens:: Ureteral stone Complications:: None
--- NOTE | 2020-12-21 09:01 | SUR.PHASEI ---
0835- pt blood sugar 181 at this time. 0859- detailed deport called to tobias Álvarez in post op. Pt in stable condition at this time.
[2020-12-24 13:44] VITALS: BP 142/77; PULSE 74; TEMP 36.8
--- NOTE | 2020-12-24 13:44 | HMH.ANESII ---
[facility] Anesthesia Record Part II Discharge Time: 09:00 Destination: Surgical Day Care (OP Surgery) PACU nurse assessment reviewed?: Yes Patient Condition:: Good Anesthesia Complications:: None Swallowing reflex intact?: Yes Cyanosis?: No Blood Pressure: 142/77 Pulse Rate: 74 Temperature: 98.2 F Mental Status: Alert & Oriented Pain level:: 0 Nausea and/or vomitting:: None Intake, IV Amount: 0
[2021-05-06 18:36] LABS: Ca oxalate dihydrate 80
== END 2020-12-21 09:31 | disposition home or self-care (01) ==
LOC: OR 06:02
PROVIDERS: PCP Nurse Practitioner Family; Visit Provider Urology
PROC: (CPT 52352; principal; 2020-12-21 07:30)
DX: N20.1 Calculus of ureter (principal); Z87.442 Personal history of urinary calculi; E11.9 Type 2 diabetes mellitus without complications; E78.5 Hyperlipidemia, unspecified; I10 Essential (primary) hypertension; Z72.0 Tobacco use; F41.9 Anxiety disorder, unspecified; F32.9 Major depressive disorder, single episode, unspecified
CPT/HCPCS: 52352; 74018; 76000; 80048; 82370; 82962; 85025; 96374; C2617; J2405

== ENCOUNTER → 2021-02-22 13:40 | Outpatient (CLI) | payer OTHER, SELFPAY ==
[2021-02-22 14:36] LABS: Amphetamine/Metha Screen,Urine Negative ng/ml (<1000)
[2021-02-22 14:37] LABS: Barbiturates Screen,Urine Negative ng/ml (<200)
[2021-02-22 14:38] LABS: Benzodiazepines Screen,Urine Negative ng/ml (<200); Cannabinoid Screen,Urine Positive ng/ml (<50)
[2021-02-22 14:39] LABS: Cocaine Screen,Urine Negative ng/ml (<300); Methadone Screen,Urine Negative ng/ml (<300)
[2021-02-22 14:40] LABS: Opiate Screen,Urine Negative ng/ml (<300)
[2021-02-22 14:43] LABS: Phencyclidine Screen,Urine Negative ng/ml (<25)
== END ==
PROVIDERS: Visit Provider Nurse Practitioner Family
DX: F41.9 Anxiety disorder, unspecified (principal)
CPT/HCPCS: 80305

== ENCOUNTER 2021-05-11 03:10 | Emergency (ER) | payer OTHER, SELFPAY ==
[2021-05-11 03:07] VITALS: BP 145/75; PULSE 57; RESP 18; TEMP 36.4; O2SAT 100; BMI 22.6
--- NOTE | 2021-05-11 03:29 | CT_ITS ---
PROCEDURE INFORMATION: Exam: CT Abdomen And Pelvis Without Contrast Exam date and time: 05/11/2021 3:29 AM Age: 56 years old Clinical indication: Abdominal pain; Flank; Left; Prior surgery; Surgery date: 6+ months; Surgery type: Gb tubal ligation; Additional info: Abd pain left flank TECHNIQUE: Imaging protocol: Computed tomography of the abdomen and pelvis without contrast. Radiation optimization: All CT scans at this facility use at least one of these dose optimization techniques: automated exposure control; mA and/or kV adjustment per patient size (includes targeted exams where dose is matched to clinical indication); or iterative reconstruction. COMPARISON: CT ABDOMEN PELVIS WO CON 12/17/2020 7:16 PM FINDINGS: Diaphragm: Small hiatal hernia is noted. Liver: Normal. No mass. Gallbladder and bile ducts: The patient is status post cholecystectomy. Pancreas: Normal. No ductal dilation. Spleen: Normal. No splenomegaly. Adrenal glands: Normal. No mass. Kidneys and ureters: High-grade left-sided hydronephrosis and hydroureter is noted secondary to a 7 mm stone at the left UVJ. A 2nd smaller 2 mm left ureteral stone is noted. Perinephric edema is present. Several small intrarenal stones are noted on the right measuring up to 3 mm. No hydronephrosis or hydroureter is present. Stomach and bowel: Sigmoid diverticulosis. Appendix: No evidence of appendicitis. Intraperitoneal space: Unremarkable. No free air. No significant fluid collection. Vasculature: Unremarkable. No abdominal aortic aneurysm. Lymph nodes: Unremarkable. No enlarged lymph nodes. Urinary bladder: Unremarkable as visualized. Reproductive: Unremarkable as visualized. Bones/joints: Unremarkable. No acute fracture. Soft tissues: Unremarkable. IMPRESSION: 1. High-grade left-sided hydronephrosis and hydroureter secondary to a 7 mm stone at the left UVJ. 2. Nonobstructing right-sided nephrolithiasis. 3. Status post cholecystectomy 4. Small hiatal hernia. 5. Sigmoid diverticulosis.
--- NOTE | 2021-05-11 03:34 | HMH.EDNVD ---
ED Disposition Clinical Impression: Renal colic on left side Disposition: Home, Self-Care Condition on Discharge: Good Instructions: Kidney Stones -- Adult Additional Instructions: fluids and call dr valiente and pcp thursday Prescriptions: Tamsulosin HCl [Flomax 0.4mg capsule] 0.4 mg PO HS #10 cap Transmission Status: Pending to [id number] Ketorolac Tromethamine [Toradol 10mg tablet] 10 mg PO Q6HP PRN #10 tab MDD 40mg/day PRN Reason: Moderate To Severe Pain Transmission Status: Pending to [id number] Referrals: Adeel Boyd APRN [Primary Care Provider] - Mono Valiente MD [Staff Physician] - - Critical Care Critical Care Time: No Attestation: On 05/11/21, the high probability of a clinically significant, sudden or life threatening deterioration of the following system(s) required my full and direct attention, intervention and personal management. The time I documented below is in addition to time spent performing reported procedures but includes the following listed in this critical care notation. Medical Decision Making - Medical Records Medical records reviewed: Yes: I reviewed the patient's medical records. - Inder Inquiry Pt receiving controlled substance: No Vital Signs: 05/11/21 03:07 05/11/21 05:49 Temperature 97.6 F Temperature Source Oral Pulse Rate [Right] 57 L Respiratory Rate 18 Blood Pressure [Right Arm] 145/75 H Blood Pressure Mean [Right Arm] 98 02 Sat by Pulse Oximetry 100 Oxygen Delivery Method Room Air Room Air - Lab Data Lab results reviewed: Yes: I reviewed the patient's lab results. Lab Results 05/11/21 03:55: Urine Color Yellow, Urine Appearance Clear, Urine pH 6.0, Ur Specific [place] 1.020, Urine Protein Negative, Urine Glucose (UA) 3+, Urine Ketones 1+, Urine Blood 3+, Urine Nitrate Negative, Urine Bilirubin Negative, Urine Urobilinogen 0.2, Ur Leukocyte Esterase Negative, Urine RBC 50-100, Ur Squamous Epith Cells 10-20 05/11/21 04:26: WBC 15.3 H, RBC 4.67, Hgb 14.6, Hct 44.6, MCV 95.5, MCH 31.4 H, MCHC 32.8, RDW 13.0, Plt Count 242, MPV 7.2 L, Neut % (Auto) 86.8 H, Lymph % (Auto) 9.0 L, Motley % (Auto) 3.7, Eos % (Auto) 0.2, Baso % (Auto) 0.3, Neut # (Auto) 13.3 H, Lymph # (Auto) 1.4, Motley # (Auto) 0.6, Eos # (Auto) 0.0, Baso # (Auto) 0.0, Total Counted 100, Neutrophils % (Manual) 78 H, Band Neutrophils % 8.0, Lymphocytes % (Manual) 13, Monocytes % (Manual) 1 L, Platelet Estimate Normal, RBC Morphology Normal 05/11/21 04:26: Sodium 135 L, Potassium 3.9, Chloride 106, Carbon Dioxide 22, Anion Gap 10.9, BUN 15, Creatinine 0.80, Estimated Creat Clear 80, Estimated GFR 74, Est GFR ( Amer) 90, Glucose 298 H, Calcium 8.4, Total Bilirubin 0.9, AST 21, ALT 15, Alkaline Phosphatase 92, C-Reactive Protein 3.9, Total Protein 6.8, Albumin 4.1, Globulin 2.7, Albumin/Globulin Ratio 1.5, Amylase 42, Lipase 34, Procalcitonin < 0.030 05/11/21 04:26: ESR 17 Result diagrams: 05/11/21 04:26 05/11/21 04:26 Orders (Tests/Meds): ED MEDICATIONS Generic Name Dose Route Start Last Admin Trade Name Freq PRN Reason Stop Dose Admin Sodium Chloride 1,000 mls @ 999 mls/hr 05/11/21 03:30 05/11/21 03:35 Sod Chlor 0.9% 1000ml Bag IV 05/11/21 04:30 999 mls/hr .Q1H1M ESTEBAN Administration Tamsulosin HCl 0.4 mg 05/11/21 21:00 Tamsulosin 0.4mg Capsule PO 06/10/21 20:59 HS ESTEBAN Discontinued Medications Generic Name Dose Route Start Last Admin Trade Name Freq PRN Reason Stop Dose Admin Acetaminophen/Codeine Phosphate 1 nicolasa 05/11/21 05:48 Acetaminophen 300mg W/Codeine 30mg Take Home Pack (6) PO 05/11/21 05:49 ONCE ONE Ketorolac Tromethamine 30 mg 05/11/21 03:27 05/11/21 03:35 Ketorolac 30mg/Ml Vial IV 05/11/21 03:28 30 mg ONCE ONE Administration - CT Data CT Scan: Abdomen, Pelvis Time Received: 04:[address] Reviewed: Yes: I have viewed the radiologist's interpretation Preliminary Findings: Abnormal Medical
[2021-05-11 04:02] LABS: Microscopic, Urine URINE MICROSCOPIC (MICROSCOPIC)
[2021-05-11 04:18] LABS: Appearance,Urine CLEAR (Clear); Bilirubin,Urine Negative (Negative); Blood, Urine 3+ (Negative); Color,Urine YELLOW (Yellow); Glucose,Urine (UA) 3+ (Negative); Ketones,Urine 1+ (Negative); Leukocyte Esterase,Urine Negative (Negative); Nitrate,Urine Negative (Negative); Protein,Urine Negative (Negative); Urobilinogen,Urine 0.2 EU/dl (0.2)
[2021-05-11 04:20] LABS: RBC,Urine 50-100 #/hpf (0-3)
[2021-05-11 04:30] VITALS: BP 142/79; PULSE 70; RESP 16; O2SAT 91
[2021-05-11 04:39] LABS: Basophils % 0.3 % (0.1-2.0); Eosinophils % 0.2 % (0.1-12.0); Hematocrit 44.6 % (37.0-47.0); Hemoglobin 14.6 g/dL (12.2-16.2); Lymphocytes # 1.4 K/mm3 (0.7-4.5); Mean Corpuscular HGB Conc 32.8 g/dL (31.8-35.4); Mean Corpuscular Hemoglobin 31.4 pg (27.0-31.2); Mean Corpuscular Volume 95.5 fl (81-99); Mean Platelet Volume 7.2 fl (7.4-10.4); Monocytes # 0.6 K/mm3 (0.1-1.0); Monocytes % 3.7 % (1.7-9.3); Neutrophils # 13.3 K/mm3 (1.8-7.8); Neutrophils % 86.8 % (37.0-80.0); Platelet Count 242 K/mm3 (142-424); Red Blood Count 4.67 M/mm3 (4.20-5.40); White Blood Count 15.3 K/mm3 (4.8-10.8)
[2021-05-11 04:40] LABS: MANUAL DIFFERENTIAL MANUAL DIFFERENTIAL (MANUAL DIFF)
[2021-05-11 04:48] LABS: Lymphocytes % 13 % (10-50); Monocytes % 1 % (2-9); Neutrophils % 78 % (42-76); Total Cells Counted 100
[2021-05-11 04:49] LABS: Platelet Estimate Normal; RBC Morphology Normal
[2021-05-11 04:51] LABS: Alanine Aminotransferase 15 U/L (12-78); Albumin Level 4.1 g/dl (3.5-5.0); Albumin/Globulin Ratio 1.5 (1.1-1.8); Alkaline Phosphatase 92 U/L (38-126); Amylase 42 U/L (30-110); Anion Gap 10.9 mEq/L (5-15); Aspartate Amino Transferase 21 U/L (14-36); Bilirubin,Total 0.9 mg/dl (0.2-1.3); Blood Urea Nitrogen 15 mg/dl (7-17); Calcium 8.4 mg/dl (8.4-10.2); Carbon Dioxide 22 mmol/L (22.0-30.0); Chloride 106 mmol/L (98-107); Creatinine Clearance Estimated 80 mL/min (50-200); Estimated Glomerular Filt Rate 74 ml/min (>60); GFR (African American) 90 ML/MIN (>60); Globulin 2.7 g/dL (1.3-3.2); Glucose 298 mg/dl (74-100); Lipase 34 U/L (23-300); Potassium 3.9 mmoL/L (3.5-5.1); Sodium 135 mmol/L (136-145); Total Protein,Serum 6.8 g/dl (6.3-8.2)
[2021-05-11 04:56] LABS: C-Reactive Protein 3.9 mg/L (0-4)
[2021-05-11 05:03] LABS: Erythrocyte Sedimentation Rate 17 mm/hr (0-30)
[2021-05-11 05:10] LABS: Procalcitonin < 0.030 ng/mL (0.0-2.0)
[2021-05-11 05:55] VITALS: BP 130/72; PULSE 66; RESP 18; TEMP 36.8; O2SAT 92
== END 2021-05-11 06:08 | disposition home or self-care (01) ==
PROVIDERS: Emergency Provider Emergency Medicine; PCP Nurse Practitioner Family
DX: N23 Unspecified renal colic (principal); E11.9 Type 2 diabetes mellitus without complications; E78.5 Hyperlipidemia, unspecified; F41.8 Other specified anxiety disorders; I10 Essential (primary) hypertension; F17.210 Nicotine dependence, cigarettes, uncomplicated; Z79.899 Other long term (current) drug therapy
CPT/HCPCS: 74176; 80053; 81001; 82150; 83690; 84145; 85007; 85025; 85651; 86140; 96365; 96375; 99283; 99284

== ENCOUNTER → 2021-05-15 18:07 | Outpatient (CLI) | payer OTHER, SELFPAY ==
[2021-05-15 15:52] LABS: Amphetamine/Metha Screen,Urine Negative ng/ml (<1000)
[2021-05-15 15:53] LABS: Barbiturates Screen,Urine Negative ng/ml (<200); Benzodiazepines Screen,Urine Negative ng/ml (<200)
[2021-05-15 15:54] LABS: Cannabinoid Screen,Urine Positive ng/ml (<50)
[2021-05-15 15:55] LABS: Cocaine Screen,Urine Negative ng/ml (<300)
[2021-05-15 15:56] LABS: Methadone Screen,Urine Negative ng/ml (<300)
[2021-05-15 15:57] LABS: Opiate Screen,Urine Negative ng/ml (<300)
[2021-05-15 15:58] LABS: Phencyclidine Screen,Urine Negative ng/ml (<25)
== END ==
PROVIDERS: Visit Provider Nurse Practitioner Family
DX: Z79.899 Other long term (current) drug therapy (principal)
CPT/HCPCS: 80305

== ENCOUNTER → 2021-08-19 13:57 | Outpatient (CLI) | payer OTHER, SELFPAY ==
[2021-08-19 13:31] LABS: Basophils # 0.2 K/mm3 (0-0.2); Basophils % 1.9 % (0.1-2.0); Eosinophils # 0.1 K/mm3 (0.0-0.4); Eosinophils % 1.1 % (0.1-12.0); Hematocrit 47.2 % (37.0-47.0); Hemoglobin 15.6 g/dL (12.2-16.2); Lymphocytes # 3.3 K/mm3 (0.7-4.5); Lymphocytes % 26.1 % (10-50); Mean Corpuscular HGB Conc 33.1 g/dL (31.8-35.4); Mean Corpuscular Hemoglobin 32.7 pg (27.0-31.2); Mean Corpuscular Volume 98.8 fl (81-99); Mean Platelet Volume 8.4 fl (7.4-10.4); Monocytes # 0.4 K/mm3 (0.1-1.0); Monocytes % 3.3 % (1.7-9.3); Neutrophils # 8.5 K/mm3 (1.8-7.8); Neutrophils % 67.6 % (37.0-80.0); Platelet Count 271 K/mm3 (142-424); Red Blood Count 4.77 M/mm3 (4.20-5.40); Red Cell Distribution Width 13.8 % (11.5-17.5); White Blood Count 12.6 K/mm3 (4.8-10.8)
[2021-08-19 13:37] LABS: Chloride 107 mmol/L (98-107); Sodium 138 mmol/L (136-145)
[2021-08-19 13:39] LABS: Blood Urea Nitrogen 6 mg/dl (7-17); Estimated Glomerular Filt Rate 104 ml/min (>60); GFR (African American) 126 ML/MIN (>60)
[2021-08-19 13:40] LABS: Alanine Aminotransferase 11 U/L (12-78); Albumin/Globulin Ratio 1.5 (1.1-1.8); Alkaline Phosphatase 87 U/L (38-126); Aspartate Amino Transferase 18 U/L (14-36); Bilirubin,Total 0.7 mg/dl (0.2-1.3); Carbon Dioxide 24 mmol/L (22.0-30.0); Cholesterol 182 mg/dl (140-200); Globulin 2.6 g/dL (1.3-3.2); Glucose 169 mg/dl (74-100); HDL Cholesterol 46 mg/dl (40-60); Total Protein,Serum 6.6 g/dl (6.3-8.2); Triglycerides 135 mg/dl (30-150); VLDL Cholesterol 27 mg/dL (0-40)
[2021-08-19 13:51] LABS: Direct LDL Cholesterol 117.62 mg/dL (100-129)
[2021-08-19 13:56] LABS: 25-OH Vitamin D, Total 13.2 ng/mL (30-100)
[2021-08-19 14:01] LABS: T4 (Thyroxine) 8.2 ug/dl (5.53-11.0)
[2021-08-19 14:14] LABS: Thyroid Stimulating Hormone 0.48 uIU/mL (0.465-4.68)
[2021-08-19 14:24] LABS: Hemoglobin A1C 7.2 % (4.0-6.0)
[2021-08-20 09:33] LABS: C-Peptide 3.5 ng/mL (1.1-4.4)
== END ==
PROVIDERS: PCP Nurse Practitioner Family; Visit Provider Nurse Practitioner Family
DX: E11.9 Type 2 diabetes mellitus without complications (principal); E55.9 Vitamin D deficiency, unspecified; Z79.84 Long term (current) use of oral hypoglycemic drugs
CPT/HCPCS: 80053; 80061; 82306; 83036; 84436; 84443; 84681; 85025

== ENCOUNTER → 2021-11-20 17:42 | Outpatient (CLI) | payer OTHER, SELFPAY ==
[2021-11-20 18:04] LABS: Amphetamine/Metha Screen,Urine Negative ng/ml (<1000)
[2021-11-20 18:05] LABS: Barbiturates Screen,Urine Negative ng/ml (<200)
[2021-11-20 18:06] LABS: Benzodiazepines Screen,Urine Negative ng/ml (<200); Cannabinoid Screen,Urine Positive ng/ml (<50)
[2021-11-20 18:07] LABS: Cocaine Screen,Urine Negative ng/ml (<300); Methadone Screen,Urine Negative ng/ml (<300)
[2021-11-20 18:08] LABS: Opiate Screen,Urine Negative ng/ml (<300)
[2021-11-20 18:09] LABS: Phencyclidine Screen,Urine Negative ng/ml (<25)
== END ==
PROVIDERS: PCP Physician Assistant; Visit Provider Physician Assistant
DX: G57.92 Unspecified mononeuropathy of left lower limb (principal)
CPT/HCPCS: 80305

== ENCOUNTER → 2022-02-20 11:00 | Outpatient (CLI) | payer OTHER, SELFPAY ==
[2022-02-20 14:44] LABS: Amphetamine/Metha Screen,Urine Negative ng/ml (<1000); Barbiturates Screen,Urine Negative ng/ml (<200)
[2022-02-20 14:45] LABS: Benzodiazepines Screen,Urine Negative ng/ml (<200)
[2022-02-20 14:46] LABS: Cannabinoid Screen,Urine Positive ng/ml (<50); Cocaine Screen,Urine Negative ng/ml (<300)
[2022-02-20 14:47] LABS: Methadone Screen,Urine Negative ng/ml (<300); Phencyclidine Screen,Urine Negative ng/ml (<25)
[2022-02-20 14:48] LABS: Opiate Screen,Urine Negative ng/ml (<300)
== END ==
PROVIDERS: PCP Nurse Practitioner Family; Visit Provider Nurse Practitioner Family
DX: Z79.899 Other long term (current) drug therapy (principal)
CPT/HCPCS: 80305

== ENCOUNTER → 2022-05-21 09:11 | Outpatient (CLI) | payer OTHER, SELFPAY ==
[2022-05-21 14:11] LABS: Microalbumin/Creatinine Ratio 12.3
[2022-05-21 14:12] LABS: Basophils # 0.1 K/mm3 (0-0.2); Basophils % 0.5 % (0.1-2.0); Eosinophils # 0.3 K/mm3 (0.0-0.4); Eosinophils % 2.3 % (0.1-12.0); Hematocrit 45.2 % (37.0-47.0); Hemoglobin 14.6 g/dL (12.2-16.2); Lymphocytes # 2.9 K/mm3 (0.7-4.5); Lymphocytes % 24.4 % (10-50); Mean Corpuscular HGB Conc 32.2 g/dL (31.8-35.4); Mean Corpuscular Hemoglobin 31.7 pg (27.0-31.2); Mean Corpuscular Volume 98.4 fl (81-99); Mean Platelet Volume 9.2 fl (7.4-10.4); Monocytes # 0.5 K/mm3 (0.1-1.0); Monocytes % 4.1 % (1.7-9.3); Neutrophils # 8.2 K/mm3 (1.8-7.8); Neutrophils % 68.8 % (37.0-80.0); Platelet Count 268 K/mm3 (142-424); Red Blood Count 4.59 M/mm3 (4.20-5.40); Red Cell Distribution Width 13.3 % (11.5-17.5); White Blood Count 11.9 K/mm3 (4.8-10.8)
[2022-05-21 14:13] LABS: Creatinine,Urine Random 145 mg/dL (Not Estab.)
[2022-05-21 14:39] LABS: Alanine Aminotransferase 13 U/L (12-78); Albumin Level 3.9 g/dl (3.5-5.0); Albumin/Globulin Ratio 1.6 (1.1-1.8); Alkaline Phosphatase 88 U/L (38-126); Anion Gap 8.7 mEq/L (5-15); Aspartate Amino Transferase 17 U/L (14-36); Bilirubin,Total 0.5 mg/dl (0.2-1.3); Blood Urea Nitrogen 7 mg/dl (7-17); Calcium 8.4 mg/dl (8.4-10.2); Carbon Dioxide 26 mmol/L (22.0-30.0); Chloride 106 mmol/L (98-107); Chol/HDL Ratio 3.3 (1-3.5); Cholesterol 184 mg/dl (140-200); Estimated Glomerular Filt Rate 87 ml/min (>60); GFR (African American) 105 ML/MIN (>60); Globulin 2.4 g/dL (1.3-3.2); Glucose 310 mg/dl (74-100); HDL Cholesterol 55 mg/dl (40-60); Potassium 4.7 mmoL/L (3.5-5.1); Sodium 136 mmol/L (136-145); Total Protein,Serum 6.3 g/dl (6.3-8.2); Triglycerides 153 mg/dl (30-150); VLDL Cholesterol 31 mg/dL (0-40)
[2022-05-21 14:51] LABS: Direct LDL Cholesterol 109.67 mg/dL (100-129)
[2022-05-21 14:58] LABS: 25-OH Vitamin D, Total 30.5 ng/mL (30-100)
[2022-05-21 15:10] LABS: Thyroid Stimulating Hormone 0.56 uIU/mL (0.465-4.68)
[2022-05-21 15:44] LABS: Hemoglobin A1C 9.6 % (4.0-6.0)
== END ==
PROVIDERS: PCP Physician Assistant; Visit Provider Physician Assistant
DX: E11.9 Type 2 diabetes mellitus without complications (principal); Z79.84 Long term (current) use of oral hypoglycemic drugs; Z79.899 Other long term (current) drug therapy
CPT/HCPCS: 80053; 80061; 82043; 82306; 82570; 83036; 84443; 85025

== ENCOUNTER → 2022-09-30 08:38 | Outpatient (CLI) | payer OTHER, SELFPAY ==
[2022-09-30 20:06] LABS: Opiate Screen,Urine Negative ng/ml (<300)
[2022-09-30 20:07] LABS: Phencyclidine Screen,Urine Negative ng/ml (<25)
[2022-09-30 23:21] LABS: Barbiturates Screen,Urine Negative ng/ml (<200); Benzodiazepines Screen,Urine Negative ng/ml (<200)
[2022-09-30 23:22] LABS: Amphetamine/Metha Screen,Urine Negative ng/ml (<1000)
[2022-09-30 23:23] LABS: Cannabinoid Screen,Urine Positive ng/ml (<50); Methadone Screen,Urine Negative ng/ml (<300)
[2022-09-30 23:24] LABS: Cocaine Screen,Urine Negative ng/ml (<300)
== END ==
PROVIDERS: PCP Nurse Practitioner Family; Visit Provider Nurse Practitioner Family
DX: F41.9 Anxiety disorder, unspecified (principal)
CPT/HCPCS: 80305

== ENCOUNTER 2023-10-10 08:28 | Emergency (ER) | payer OTHER, SELFPAY ==
--- NOTE | 2023-10-10 08:34 | EXP.UTC ---
Discharge Plan Disposition Patient Disposition: Home, Self-Care Condition: Good Prescriptions Prescriptions: New ofloxacin 0.3 % drops See Rx Instructions .ROUTE .COMPLEX Qty: 10 0RF Rx Instructions: put 1-2 drps into affected eye(s) every 2-4 h x 2 days, then 1-2 drps 4 times/day days 3-7 No Action (DME) pen needle, diabetic [Comfort EZ Pen [place]] 32 gauge x 5/32 needle See Rx Instructions .Route Qty: 100 5RF Rx Instructions: As directed glipizide 10 mg tablet extended release 24hr 10 mg PO DAILY gabapentin 800 mg tablet 800 mg PO DAILY simvastatin 20 mg tablet 20 mg PO DAILY ergocalciferol (vitamin D2) 1,250 mcg (50,000 unit) capsule 1,250 mcg PO DAILY escitalopram oxalate 10 mg tablet 10 mg PO DAILY Referrals Follow up/Referrals: Valeria Pelaez PA [Primary Care Provider] - See instructions Activity Restrictions/Add. Instructions Additional Instructions/Restrictions: Use eye drops as directed, eye shield if needed Keep head elevated Return to ER if headache, worsening vision, bleeding, vomiting, etc Call [facility] [phone] first thing Thursday morning for followup Clinical Impressions Clinical Impression: Corneal abrasion, left, Subconjunctival hemorrhage of left eye, Hyphema of left eye Instructions Patient Instructions: DI for Corneal Abrasion Print Language Print Language: Tajik Discharge ED Provider: Valeria Pelaez [facility] [place] HPI General Stated complaint: AO 10/09/23, fell, inj to left eye Time Seen by Provider: 10/10/23 08:50 History of Present Illness Provider Complaint: Patient tripped over her dog and fell into the mini blind around 1 am. Thinks that she scratched her left eye. Eye is burning and blurry. Eyelid is swollen. Onset (ago): hour(s) (8) Location: eyes Relieving factors: none Exacerbating factors: none Associated symptoms: denies other symptoms Treatments prior to arrival: none Related Data Home Medications ?Medication ?Instructions ?Recorded ?Confirmed ergocalciferol (vitamin D2) 1,250 1,250 mcg PO DAILY 10/10/23 10/10/23 mcg (50,000 unit) capsule escitalopram oxalate 10 mg tablet 10 mg PO DAILY 10/10/23 10/10/23 gabapentin 800 mg tablet 800 mg PO DAILY 10/10/23 10/10/23 glipizide 10 mg tablet, extended 10 mg PO DAILY 10/10/23 10/10/23 release 24 hr simvastatin 20 mg tablet 20 mg PO DAILY 10/10/23 10/10/23 Previous Rx's ?Medication ?Instructions ?Recorded pen needle, diabetic 32 gauge x #100 ea 12/29/22 (Comfort EZ Pen [place]) ofloxacin 0.3 % eye drops See Rx Instructions ophthalmic 10/10/23 (eye) .COMPLEX #10 mL Allergies Allergy/AdvReac Type Severity Reaction Status Date / Time metformin Allergy Severe Kidney Verified 07/13/23 10:48 Failure PFSH PFS Disclaimer: The information contained in this section may have been updated after the patient was seen, as this information can be updated by other users. Medical History Diabetes mellitus Neuropathy Neuropathy of left lower extremity Uncontrolled diabetes mellitus Social History Smoking Status: Current every day smoker tobacco type: cigarettes packs per day: 1 second hand exposure: Yes alcohol intake: never substance use type: denies use current occupational status: unemployed Travel in the last 8 weeks: None household members: spouse housing: house caffeine: No ROS Obtained: Yes All systems reviewed & no additional complaints except as documented Eyes Eyes: Reports as per HPI and Reports eye pain Physical Exam General General appearance: alert and in no apparent distress Head Head exam: other (bruising left upper eyelid/browbone) Eye Eye exam: Present periorbital swelling and periorbital tenderness Expanded Eye Exam Eyelids: left: erythema and swelling eyelids Pupils: Bilateral: regular, round and reactive Sclera/Conjunctival: left: hemorrhage and tenderness Anterior chamber: left: hyphema (scant) Both Eyes Image: 1. corneal abrasion IOP (L) in mmH Respiratory Respiratory exam: Present normal lung sounds bilaterally Cardiovascular Cardiovascular exam: Present regular rate Neurological Exam Neurological exam: Present alert and oriented X3 Medical Decision Making Inder Inquiry Pt receiving controlled substance: No Orders (Tests/Meds): Discussed with Dr Dick, who helped me with IOP measurement Procedures Eye Exam/FB Removal Location: eye (L) Topical anesthetic used: tetracaine Fluorescein Stick(s) used: Yes Procedure performed under: direct visualization with magnification Evidence of corneal penetration: No Post-procedure medication: ophthalmic antibiotic Patient tolerated procedure: well
[2023-10-10 08:40] VITALS: BP 122/71; PULSE 67; RESP 20; TEMP 36.6; O2SAT 96; BMI 23.5
[2023-10-10] MEDS: TETRACAINE 0.5% OPTH SOL 15ML OP (09:13)
[2023-10-10] MEDS: ERYTHROMYCIN BASE 1 GM OINT...G. OP (09:13)
[2023-10-10] MEDS: FLUORESCEIN SODIUM 1MG STRIP 1 MG OP (09:13)
[2023-10-10 09:15] VITALS: BP 122/71; PULSE 67; RESP 20; TEMP 36.6; O2SAT 96
== END 2023-10-10 09:18 | disposition home or self-care (01) ==
PROVIDERS: Emergency Provider Physician Assistant; PCP Physician Assistant
DX: S05.02XA Injury of conjunctiva and corneal abrasion without foreign body, left eye, initial encounter (principal); H11.32 Conjunctival hemorrhage, left eye; H21.02 Hyphema, left eye; W01.198A Fall on same level from slipping, tripping and stumbling with subsequent striking against other object, initial encounter
CPT/HCPCS: 99204; 99212; G0463

== ENCOUNTER 2024-01-11 08:07 | Outpatient (CLI) | payer OTHER, SELFPAY ==
--- NOTE | 2024-01-11 08:12 | MM_ITS ---
PROCEDURE INFORMATION: Exam: MG Bilateral Screening 3D Mammography Exam date and time: 01/11/2024 8:10 AM Age: 58 years old Clinical indication: Screening exam. TECHNIQUE: Imaging protocol: Bilateral Screening tomosynthesis and 2D mammography including computer-aided detection (CAD) when performed. COMPARISON: 1. MG MM DIG MAMM BI DX W/CAD 09/14/2020 1:51 PM 2. MG MM DIG SCREENING MAMM BI W/CAD 03/15/2020 12:40 PM FINDINGS: MAMMOGRAPHY: Breast composition: There are scattered areas of fibroglandular density. Mass: No suspicious masses. Architectural distortion: None. Calcifications: No suspicious calcifications. Asymmetric density: None. Skin thickening: None. Axillary adenopathy: None. IMPRESSION: No mammographic evidence of malignancy. Annual screening is recommended unless otherwise clinically indicated. ASSESSMENT: BI-RADS Category 1: Negative.
== END 2024-01-11 23:59 | disposition home or self-care (01) ==
LOC: RAD 08:08
PROVIDERS: PCP Physician Assistant; Visit Provider Physician Assistant
DX: Z12.31 Encounter for screening mammogram for malignant neoplasm of breast (principal)
CPT/HCPCS: 77063; 77067